=== PATIENT | male | born 1940 | race Caucasian/White ===

== ENCOUNTER 2017-12-01 10:25 | Outpatient (CLI) | payer MEDICARE, OTHER ==
--- NOTE | 2017-12-01 15:15 | NM ---
WHOLE BODY BONE SCAN: Date: 12/01/17 HISTORY: Prostate cancer. RADIOPHARMACEUTICAL: 32 mCi technetium-99m MDP injected intravenously. COMPARISON: Bone scan dated 05/26/17. CORRELATION: CT thoracic spine of 05/30/17. FINDINGS: There is continued intense tracer localization in the vertebral metastases involving the T4 and T5 ve rtebral bodies. There are small foci of mildly increased uptake noted in the left 5th, 9th, and 10th ribs, right iliac bone, and right calvarium. These are suspicious for new metastasis. Increased uptake in the shoulders and acromioclavicular joints are consistent with degenerative porras es. Postop changes of left arthroplasty are again seen. Tracer excretion through the kidneys is withi n normal limits. IMPRESSION: Findings suspicious for new osseous metastases since 05/26/17. POS: [facility]
== END 2017-12-01 10:26 | disposition home or self-care (01) ==
LOC: NM 10:25
PROVIDERS: ATTEND Internal Medicine Medical Oncology
DX: C61 Malignant neoplasm of prostate (principal); C79.51 Secondary malignant neoplasm of bone
CPT/HCPCS: 78306; A9503

== ENCOUNTER 2017-12-19 13:49 | Inpatient (IN) | payer MEDICARE, OTHER ==
[2017-12-19 14:50] LABS: ALT (SGPT) 17 U/L (8-55); AST (SGOT) 18 U/L (5-34); Albumin 3.1 g/dL (3.4-4.8); Alkaline Phosphatase 62 U/L (40-150); Anion Gap 15 mmol/L (10-20); BUN (Urea Nitrogen) 26 mg/dL (8.4-25.7); Bilirubin, Total 1.5 mg/dL (0.2-1.2); Calc. Creatinine Clearance 0 mL/min (70-130); Calcium 8.5 mg/dL (7.8-10.44); Carbon Dioxide 28 mmol/L (23-31); Chloride 95 mmol/L (98-107); Estimated GFR-MDRD 41; Globulin 2.8 g/dL (2.4-3.5); Glucose 267 mg/dL (83-110); Protein, Total 5.9 g/dL (5.8-8.1); Sodium 135 mmol/L (136-145)
[2017-12-19 14:52] LABS: CKMB 1.9 ng/mL (0-6.6); Troponin I 0.072 ng/mL (< 0.028)
[2017-12-19 14:53] LABS: Potassium 2.5 mmol/L (3.5-5.1)
--- NOTE | 2017-12-19 14:57 | RAD ---
PORTABLE CHEST: Date: 12/19/17 HISTORY: Fever. COMPARISON: 01/09/17. FINDINGS: Lungs appear well aerated and clear. No evidence of infiltrate. There are scattered granuloma again n oted. Dual lead pacemaker again noted. No evidence of vascular congestion or edema. IMPRESSION: No acute lung process noted on portable exam. POS: [facility]
[2017-12-19 15:04] LABS: Band 12 % (5-11); Eosinophils 4 % (0-10); Hemoglobin 10.1 g/dL (14.0-18.0); Lymphocytes 28 % (21-51); MDiff Complete? YES; Mean Corpuscular HGB CONC 36.2 g/dL (32.0-36.0); Mean Corpuscular Volume 96.7 fl (80.0-94.0); Mean Platelet Volume 7.4 fL (7.4-10.4); Metamyelocyte 4 % (0-0); Monocytes 2 % (0-10); Myelocyte 2 % (0-0); Neutrophil 46 % (42-75); Nucleated RBC 1 % (0); PLT Morphology Comment Appears Adequate; Platelet Count 136 thou/uL (130-400); RBC Distribution Width 10.9 % (11.5-14.5); RBC Morphology Normal; Reactive Lymphocytes 2 % (0-10); Reflex for Review?? NO; White Blood Cell (WBC) Count 1.1 thou/uL (4.8-10.8)
[2017-12-19] MEDS ORDERED: Potassium Chloride 20 MEQ TAB ONE (15:27)
--- NOTE | 2017-12-19 17:14 | HP ---
PRIMARY CARE PHYSICIAN: Cortez Chinchilla M.D. CHIEF COMPLAINT: Generalized weakness after chemotherapy. HISTORY OF PRESENTING ILLNESS: Mr. Burk is a very pleasant 77-year-old male with known history of m etastatic prostate cancer who was recently started on new chemotherapy last week who came into the em ergency room with primary complaints as above. History is mainly obtained by the patient himself and supplemented by his family members as he has some early onset of dementia. According to Mr. Burk's family, he has been feeling fine upon until 2 days after his chemotherapy. He progressively got extremely weak in the week following after the chemotherapy to the point where h e was not even able to get himself out up in the bed, let alone walk. He normally uses a walker and is fairly independent in taking care of himself, but lately he has been needing support to even get h im out of the bed. Two or three times, he slid out to the floor. He has also been feeling like he i s going to pass out. He has history of chronic diarrhea for which he takes Imodium, but in the last 2 days he has been having increased bowel movements which are loose and liquidy. He also has spiked temperature of day after chemotherapy which improved with Tylenol. He denies any chest pain, shortne ss of breath. He does endorse some chills yesterday. No abdominal pain, nausea, or vomiting. No dy suria, frequency or urgency. Upon presentation to the emergency room, he was hemodynamically stable, but further workup revealed n eutropenia with WBC of 1.1, hemoglobin of 10.1 and platelet count of 136. His neutrophil count is 46 %. Serum chemistry shows potassium of 2.5, BUN 26, creatinine 1.64. Cardiac enzymes, troponin 0.072 . His total bilirubin is 1.5, blood sugar 267. He was given IV fluids and IV potassium along with a ntibiotics and is now being admitted to oncology floor for further workup for possible neutropenic in fection. PAST MEDICAL HISTORY: 1. History of metastatic prostate cancer, currently under treatment status post radiation in the [facility]. 2. History of complete heart block status post pacemaker placement on 12/2016. 3. Hypertension. 4. Benign prostatic hypertrophy. 5. History of colon cancer. 6. Cognitive deficits, followed by Dr. Luis. 7. Depression. PAST SURGICAL HISTORY: Hip surgery, knee surgery, shoulder surgery, colon cancer and prostate surger y. ALLERGIES: No known medication allergies. SOCIAL HISTORY: He is and lives at home with his . No alcohol, tobacco or drug abuse. FAMILY HISTORY: Negative for heart disease and diabetes in his family. HOME MEDICATIONS: Metoprolol succinate 50 mg daily, escitalopram 10 mg daily, losartan/hydrochloroth iazide 100/12.5 mg daily, tamsulosin 0.4 mg 2 capsules daily, finasteride 5 mg daily, multivitamin [place], aspirin 81 mg daily, memantine 10 mg daily, galantamine daily 16 mg, [place] as needed, bicalutami de 50 mg daily, Zometa daily and Taxotere in the chemotherapy form. REVIEW OF SYSTEMS: The following complete review of systems was negative, unless otherwise mentioned in the HPI or below: Constitutional: Weight loss or gain, ability to conduct usual activities. Skin: Rash, itching. Eyes: Double vision, pain. ENT/Mouth: Nose bleeding, neck stiffness, pain, tenderness. Cardiovascular: Palpitations, dyspnea on exertion, orthopnea. Respiratory: Shortness of breath, wheezing, cough, hemoptysis, fever or night sweats. Gastrointestinal: Poor appetite, abdominal pain, heartburn, nausea, vomiting, constipation, or diarr hea. Genitourinary: Urgency, frequency, dysuria, nocturia. Musculoskeletal: Pain, swelling. Neurologic/Psychiatric: Anxiety, depression. Allergy/Immunologic: Skin rash, bleeding tendency. It is negative except for those mentioned in the history and physical. LABORATORY DATA: On examination, CBC shows WBCs 1.1 with 46%, neutrophils 12%, bands, hemoglobin 10. 1, platelet count of 136. Serum chemistries: Sodium 135, potassium 2.5, chloride 95, BUN 26, creati nine 1.64, blood sugar 265, total bilirubin 1.5. Troponin 0.072 with CK-MB of 1.9. IMAGING DATA: Chest x-ray by my review has no evidence to suggest any infiltrates. Twelve-lead EKG shows paced rhythm. PHYSICAL EXAMINATION: VITAL SIGNS: Stable. Blood pressure is somewhat on the lower side. Afebrile. GENERAL: He appears pale, weak and tired, but in no acute distress. He is awake, alert, oriented x3 . HEENT: Mucous membrane is slightly dry. No oropharyngeal exudate or erythema. Head is normocephali c, atraumatic. Pupils are equal and reactive to light and accommodation. Extraocular movement intac t. NECK: Supple without any lymphadenopathy, JVD or bruit. CHEST: Clear to auscultation without any wheezing, rales or rhonchi. Rhythm is regular without any murmur, rubs or gallops. ABDOMEN: Soft, nontender, and nondistended with positive bowel sounds. EXTREMITIES: Free of any cyanosis, clubbing, or edema. NEUROLOGIC: Examination is nonfocal. SKIN: Free of any rashes or bruises. PSYCHIATRIC: Normal affect. IMPRESSION AND PLAN: 1. Generalized weakness. Most likely secondary to cancer chemotherapy. He is also somewhat dehydra alton. At this time, he will be admitted under septic and neutropenic precautions and we will treat hi m with broad spectrum IV antibiotic and obtain urine and blood culture as well as urinalysis. Most l ikely, his symptoms are just secondary to chemotherapy, but sepsis cannot be ruled out at this time a s well. We will also consult occupational therapist and physical therapist and arrange home health f or this patient who is largely bed bound. 2. Acute renal insufficiency. This is secondary to ongoing diarrhea. He will be started on normal saline with potassium chloride. 3. Hypokalemia, replace and recheck. 4. Hyperglycemia, unclear why he has such hyperglycemia. He probably has received some steroids wit h his chemotherapy. At this time, we will continue to monitor. 5. Elevated cardiac enzymes. We will continue to trend serial cardiac enzymes. He currently is asy mptomatic and likelihood of ACS is very low. 6. Neutropenia without any significant reduction in the ANC. At this time, continue neutropenic pre cautions. We will continue to monitor on a daily basis and transfuse as needed. 7. Metastatic prostate cancer on chemotherapy. Consult his oncologist while he is here. He was due for his chemotherapy session today which he has obviously missed. We will defer the next chemothera py session to the Oncology colleagues at this time. 8. History of complete heart block, status post pacemaker placement. At this time, he does not have any complaints regarding to his pacemaker. Likelihood of pacemaker infection is very low. If he st arts to spike high fever and developed bacteremia, then pacemaker will need to be checked for lead in fection. 9. History of hypertension. We will resume his home medications once confirmed. 10. History of depression. 11. History of colon and bladder cancer. 12. Code status: FULL CODE. Discussed with the patient. DISPOSITION: Mr. Burk is currently being admitted to hospital with generalized weakness and possibl e neutropenic sepsis. Severe hypokalemia and dehydration also noticed. Estimated length of stay is at least 2-3 midnights. Further management will depend upon his clinical course.
[2017-12-19] MEDS ORDERED: Bisacodyl 5 MG TAB PO PRN (18:13)
[2017-12-19] MEDS ORDERED: cloNIDine 0.1 MG TAB PO PRN (18:13)
[2017-12-19] MEDS ORDERED: Ondansetron HCl/PF 4 MG/2 ML Vial IVP PRN ×2 (18:13)
[2017-12-19] MEDS ORDERED: Senokot 8.6 MG TAB PO PRN (18:13)
[2017-12-19] MEDS ORDERED: hydrALAZINE 20 MG/ML VIAL SLOW IVP PRN (18:13)
[2017-12-19] MEDS ORDERED: Mag-Al 1200 mg/1200 mg/30 ML UDCUP PO PRN (18:13)
[2017-12-19] MEDS ORDERED: Calcium Carbonate 500 MG ChewTAB PO PRN (18:13)
[2017-12-19 18:17] VITALS: BMI 29.2
[2017-12-19] MEDS: Vancomycin HCl 1 GM in Premix Bag 1 BAG IVPB SCH ×2 (20:18→21:16)
[2017-12-19] MEDS: Cefepime 2 GM, Syringe 2.5 ML in Sodium Chloride 0.9% 10 ML SLOW IVP SCH ×2 (20:18→21:16)
[2017-12-19] MEDS: 1/2 NS w/KCL 20 mEq 1,000 ML IV SCH ×2 (21:11→21:16)
[2017-12-19] MEDS: Famotidine 20 MG TAB PO SCH (21:17)
[2017-12-19] MEDS: Atorvastatin Calcium 10 MG TAB PO SCH (21:17)
[2017-12-19] MEDS ORDERED: Cefepime 2 GM in Sodium Chloride 0.9% 100 ML IVPB SCH (22:00)
[2017-12-20] MEDS: Cefepime 2 GM, Syringe 2.5 ML in Sodium Chloride 0.9% 10 ML SLOW IVP SCH ×3 (01:27→18:08)
[2017-12-20 05:50] LABS: Anion Gap 11 mmol/L (10-20); BUN (Urea Nitrogen) 27 mg/dL (8.4-25.7); Calc. Creatinine Clearance 48 mL/min (70-130); Calcium 7.7 mg/dL (7.8-10.44); Carbon Dioxide 27 mmol/L (23-31); Chloride 103 mmol/L (98-107); Estimated GFR-MDRD 46; Glucose 133 mg/dL (83-110); Sodium 138 mmol/L (136-145)
[2017-12-20 05:59] LABS: Potassium 2.5 mmol/L (3.5-5.1)
[2017-12-20 06:03] LABS: Band 11 % (5-11); Hemoglobin 8.5 g/dL (14.0-18.0); Lymphocytes 35 % (21-51); MDiff Complete? YES; Mean Corpuscular HGB CONC 36.1 g/dL (32.0-36.0); Mean Corpuscular Hemoglobin 35.1 pg (27.0-31.0); Mean Corpuscular Volume 97.3 fl (80.0-94.0); Mean Platelet Volume 7.3 fL (7.4-10.4); Monocytes 16 % (0-10); Neutrophil 38 % (42-75); Platelet Count 133 thou/uL (130-400); RBC Distribution Width 10.9 % (11.5-14.5); Red Blood Cell (RBC) Count 2.42 mill/uL (4.70-6.10); White Blood Cell (WBC) Count 1.3 thou/uL (4.8-10.8)
[2017-12-20] MEDS: Potassium Chloride 40 MEQ in Sodium Chloride 0.45% 1,000 ML IV SCH ×2 (07:26→20:43)
[2017-12-20] MEDS: Enoxaparin Sodium 40 MG/0.4 ML SYRINGE SC SCH (09:22)
[2017-12-20] MEDS: Bicalutamide 50 MG TAB PO SCH (09:23)
[2017-12-20] MEDS: Aspirin 81 mg Enteric Coated Tablet PO SCH (09:23)
[2017-12-20] MEDS: Finasteride 5 MG TAB PO SCH (09:23)
[2017-12-20] MEDS: Escitalopram Oxalate 10 mg Tablet PO SCH (09:23)
[2017-12-20] MEDS: Multivit, Therapeutic 1 TAB PO SCH (09:23)
[2017-12-20 09:50] LABS: Bilirubin Negative (Negative); Blood, Urine Large (Negative); Clarity CLOUDY (Clear); Glucose, Urine (Dipstick) Negative (Negative); Leukocyte Moderate (Negative); Nitrite Negative (Negative); Protein, Urine (Dipstick) 30 mg/dL (Neg-Trace); Specific Gravity, Urine 1.011 (1.002-1.036); Urobilinogen 0.2 mg/dL (0.2-1.0)
[2017-12-20 09:53] LABS: Bacteria/HPF None Seen HPF (None Seen); Hyaline Casts/LPF 4-6 HYALINE CAST LPF (0-3 Hyaline); Pathc Cast-AUWi Flag 0.81 (0-2.49); RBC/HPF 21-50 HPF (0-3); Squamous Epithelial 0-3 HPF (0-3)
[2017-12-20 10:23] LABS: Crystals/HPF 1+ AMORPH URATES HPF (Negative); Renal Epithelial None Seen HPF (0-3); Transitional Epithelial NONE SEEN HPF (0-3)
--- NOTE | 2017-12-20 13:48 | PQF ---
DATE: 12-20-17 ATTN: DR. MILO MCLAIN Please exercise your independent, professional judgment in responding to the clarification form. Clinical indicators are provided on the bottom of this form for your review Please check appropriate box(s): [ X ] Acute Renal Failure (ARF) / Acute Kidney Injury (GARRICK) [ ] No Renal Failure [ ] Other diagnosis [ ] Unable to determine In addition, please specify: Present on Admission (POA): [ ] Yes [ ] No [ ] Unable to determine National Kidney Foundation Guidelines for CKD Staging Stage I Kidney damage with normal or increased GFR GFR > 90 Stage II Kidney damage with mildly decreased GFR GFR 60-89 Stage III Kidney damage with moderately decreased GFR GFR 30-59 Stage IV Kidney damage with severely decreased GFR GFR 16-29 Stage V Kidney failure GFR<15 ESRD End Stage Renal Disease On dialysis Acute Renal Failure/Acute Kidney Failure defined as: Increases in SCr by (>) 0.3 mg/dl within 48 hours OR- Increases in SCr by (>) 1.5 times baseline, known or presumed to have occurred within the prior 7 days OR- Urine volume < 0.5 ml/kg/hour for 6 hours (KDIGO supplement 2012 for RIFLE/TORI criteria) For continuity of documentation, please document condition throughout progress notes and discharge summary. Thank You. CLINICAL INDICATORS - SIGNS / SYMPTOMS / LABS H&P: ACUTE RENAL INSUFFICIENCY. GFR: 12-19-18: 41 18: 46 BUN: 12-19-17: 26 18: 27 CREATININE: 18: 1.64 12-20-17: 1.47 H&P: ONGOING DIARRHEA RISK FACTORS: H&P: SOMEWHAT DEHYDRATED, ONGOING DIARRHEA TREATMENTS: H&P: HE WILL BE STARTED ON NORMAL SALINE WITH POTASSIUM CHLORIDE (This form is maintained as a part of the permanent medical record) 2014 [employer], [employer]. All Rights Reserved BETTY [email or web address] Office: [phone] [facility] CENTERZeke
--- NOTE | 2017-12-20 14:20 | PDOC.PN ---
- Subjective Encounter Start Date: 12/20/17 Encounter Start Time: 07:00 Pt seen for followup re: feneralized weakness. Denies chest pain. Feels weak overall. No nausea or vomiting. No fevers. - Objective MAR Reviewed: Yes Vital Signs & Weight: Vital Signs (12 hours) Temp Pulse Resp BP BP BP Pulse Ox 12/20/17 10:33 116/59 L 126/59 L 12/20/17 08:00 97.8 F 80 20 131/90 98 12/20/17 03:37 98.8 F 75 16 113/55 L 99 Weight Admit Weight 181 lb Weight 181 lb Result Diagrams: 12/20/17 05:15 12/20/17 05:15 Phys Exam - Physical Examination Constitutional: NAD HEENT: PERRLA, moist MMs, sclera anicteric, oral pharynx no lesions Neck: no nodes, no JVD, supple, full ROM Respiratory: no wheezing, no rales, no rhonchi, clear to auscultation bilateral Cardiovascular: RRR, no rub Gastrointestinal: soft, non-tender, no distention, positive bowel sounds Neurological: moves all 4 limbs Psychiatric: normal affect Dx/Plan (1) Generalized weakness Code(s): R53.1 - WEAKNESS Status: Acute (2) Hypokalemia Code(s): E87.6 - HYPOKALEMIA Status: Acute (3) GARRICK (acute kidney injury) Code(s): N17.9 - ACUTE KIDNEY FAILURE, UNSPECIFIED Status: Acute (4) Neutropenia Code(s): D70.9 - NEUTROPENIA, UNSPECIFIED Status: Acute (5) HTN (hypertension) Code(s): I10 - ESSENTIAL (PRIMARY) HYPERTENSION Status: Chronic (6) Depression Code(s): F32.9 - MAJOR DEPRESSIVE DISORDER, SINGLE EPISODE, UNSPECIFIED Status : Chronic (7) Metastatic malignant neoplasm to prostate Code(s): C79.82 - SECONDARY MALIGNANT NEOPLASM OF GENITAL ORGANS Status: Chronic - Plan continue antibiotics, PT/OT, out of bed/ambulate * . Continue IV antibiotics as below. Replace potassium. GARRICK improving. Monitor vital signs, titrate antihypertensives as needed. Review of Systems - Review of Systems Constitutional: weakness. negative: fever, chills, sweats, malaise Respiratory: negative: Cough, Dry, Shortness of Breath, Hemoptysis, SOB with Excertion, Pleuritic Pain, Sputum, Wheezing Cardiovascular: negative: chest pain, palpitations, orthopnea, paroxysmal nocturnal dyspnea, edema, light headedness Gastrointestinal: negative: Nausea, Vomiting, Abdominal Pain, Diarrhea, Constipation, Melena, Hematochezia Genitourinary: negative: Dysuria, Frequency, Incontinence, Hematuria, Retention - Medications/Allergies Allergies/Adverse Reactions: Allergies Allergy/AdvReac Type Severity Reaction Status Date / Time No Known Allergies Allergy Verified 12/20/17 03:31 Medications: Current Medications Acetaminophen (Tylenol) 650 mg PO Q4H PRN PRN Reason: Headache/Fever or Pain Al Hydroxide/Mg Hydroxide (Maalox) 30 ml PO Q6H PRN PRN Reason: Heartburn or Indigestion Aspirin (Ecotrin) 81 mg PO DAILY [facility] Last Admin: 12/20/17 09:23 Dose: 81 mg Atorvastatin Calcium (Lipitor) 10 mg PO HS [facility] Last Admin: 12/19/17 21:17 Dose: 10 mg Benzonatate (Tessalon) 100 mg PO Q4H PRN PRN Reason: Cough Bicalutamide (Casodex) 50 mg PO DAILY [facility] Last Admin: 12/20/17 09:23 Dose: 50 mg Bisacodyl (Dulcolax) 10 mg PO DAILYPRN PRN PRN Reason: Constipation Calcium Carbonate (Tums) 1,000 mg PO Q4H PRN PRN Reason: Heartburn or Indigestion Clonidine (Catapres) 0.1 mg PO Q4H PRN PRN Reason: Systolic BP > 160 Enoxaparin Sodium (Lovenox) 40 mg SC 0900 [facility] Last Admin: 12/20/17 09:22 Dose: 40 mg Escitalopram Oxalate (Lexapro) 10 mg PO DAILY [facility] Last Admin: 12/20/17 09:23 Dose: 10 mg Famotidine (Pepcid) 20 mg PO Q24HR [facility] Last Admin: 12/19/17 21:17 Dose: 20 mg Finasteride (Proscar) 5 mg PO DAILY [facility] Last Admin: 12/20/17 09:23 Dose: 5 mg Galantamine Hydrobromide (Razadyne) 16 mg PO DAILY [facility] Last Admin: 12/20/17 09:22 Dose: 16 mg Guaifenesin (Robitussin Sf) 200 mg PO Q4H PRN PRN Reason: Cough Hydralazine HCl (Apresoline) 10 mg SLOW IVP Q4H PRN PRN Reason: Systolic BP > 180 Vancomycin HCl 1 gm/ Device 200 mls @ 200 mls/hr IVPB 1830 [facility] Last Admin: 12/19/17 21:16 Dose: Not Given Cefepime HCl 2 gm/ Syringe 2.5 (ml/ Sodium Chloride) 12.5 mls @ 150 mls/hr SLOW IVP 0200,1000,1800 [facility] Last Admin: 12/20/17 09:26 Dose: 12.5 mls Potassium Chloride 40 meq/ (Sodium Chloride) 1,020 mls @ 75 mls/hr IV .[id number] [facility] Last Admin: 12/20/17 07:26 Dose: 1,020 mls Loratadine (Claritin) 10 mg PO DAILYPRN PRN PRN Reason: Sinus Symptoms Memantine (Namenda) 10 mg PO DAILY [facility] Last Admin: 12/20/17 09:23 Dose: 10 mg Miscellaneous Medication (Pharmacy To Dose) 1 each IVPB PRN PRN PRN Reason: Pharmacy to dose Multivitamins (Theragran) 1 tab PO DAILY [facility] Last Admin: 12/20/17 09:23 Dose: 1 tab Ondansetron HCl (Zofran) 4 mg IVP Q6H PRN PRN Reason: Nausea/Vomiting Senna (Senokot) 2 tab PO HSPRN PRN PRN Reason: Constipation Tramadol HCl (Ultram) 50 mg PO Q4H PRN PRN Reason: Moderate Pain (4-6)
--- NOTE | 2017-12-20 17:57 | CON ---
DATE OF CONSULTATION: 12/20/2017 REASON FOR CONSULTATION: Neutropenia. HISTORY OF PRESENT ILLNESS: Mr. Burk is a pleasant 77-year-old gentleman with metastatic prostate c ancer, who was recently on Zytiga and Lupron. Over the past 30 days, his PSA doubled. He had a bone scan, which showed a new bone metastasis. He was started on low dose weekly Zytiga. He received hi s first dose last week. Approximately, 3-4 days after treatment, he began to have generalized weakne ss, worsening diarrhea. He was to come in on yesterday for cycle 2; however, while loading him into the car, he became extremely weak and EMS was called and brought to this facility. Routine lab showe d a white count of 1.1 with 40% neutrophils and 12% bands. His potassium was 2.5. His creatinine wa s mildly elevated at 1.64. He was admitted for dehydration and generalized weakness. He was pancult ured and started on empiric antibiotics. Cultures have not been positive thus far. He has received potassium repletement. Currently, he states he is feeling well, no chest pain, shortness of breath. No abdominal discomfort or diarrhea. Assessment was done at bedside with family present. PAST MEDICAL HISTORY: 1. Josh 4+4, adenocarcinoma of the prostate. 2. Early Alzheimer's. 3. Hypertension. 4. Rectal cancer. PAST SURGICAL HISTORY: 1. Lower anterior resection of the rectum. 2. Hernia repair. 3. Hip replacement. 4. Laminectomy. 5. Shoulder replacement. ALLERGIES: No known drug allergies. HOME MEDICATIONS: 1. Aspirin 81 mg daily. 2. Bicalutamide 50 mg daily. 3. Citalopram 10 mg daily. 4. Finasteride 5 mg daily. 5. Galantamine 60 mg daily. 5. Hydrocodone p.r.n. 6. Losartan/hydrochlorothiazide daily. 7. Memantine daily. 8. Metoprolol 50 mg daily. 9. Flomax 0.4 mg 2 tablets daily. FAMILY HISTORY: Father had prostate cancer. SOCIAL HISTORY: , has 2 children, lives with his spouse. No alcohol, tobacco, or illicit cayla g use. REVIEW OF SYSTEMS: Twelve point review of systems is negative except for noted in HPI. PHYSICAL EXAMINATION: VITAL SIGNS: Temperature is 97.8, pulse is 80, respiratory rate 20, BP is 116/59. He is 98% on room air. GENERAL: Well-developed, well-nourished male in no acute distress. HEENT: Normocephalic, atraumatic. Pupils are equal and reactive to light. NECK: Supple. CARDIOVASCULAR: Regular rate and rhythm. LUNGS: Clear. ABDOMEN: Obese. Bowel sounds are positive. EXTREMITIES: No clubbing, cyanosis, or edema. SKIN: No rash. HEMATOLOGIC: No petechia or purpura. NEUROLOGIC: Nonfocal. PSYCHIATRIC: Patient is alert and oriented and answering questions appropriately. PERTINENT LABORATORY AND X-RAYS: Current WBCs are 1.3, hemoglobin 8.5, hematocrit 23.6, platelet cou nt is 133,000, 38% neutrophils, 11% bands, 35% lymphocytes, 16% monocytes. Sodium is 138, potassium 2.5, chloride 103, CO2 is 27, BUN is 27, creatinine 1.47, calcium 7.7, total bilirubin is 1.5, AST is 18, ALT is 17, alkaline phosphatase is 64. Troponin is 0.072, protein is 5.9, albumin 3.1, globulin 2.8. Urine is negative for bacteria. ASSESSMENT: 1. Metastatic prostate cancer status post cycle 1 of reduced dose Taxotere. 2. Weakness secondary to #1. 3. Chronic diarrhea. 4. Hypokalemia. DISCUSSION: Patient has been given IV fluids and potassium repletion. He has Imodium p.r.n. His wh ite count has marginally improved overnight. We will continue to monitor CBC. He will have a PT irma luation, which will likely continue at home. He will follow up next week to see Dr. Alyssa venegas further chemotherapy. Thank you for the consult.
[2017-12-20] MEDS: Vancomycin HCl 1 GM in Premix Bag 1 BAG IVPB SCH (18:08)
[2017-12-20] MEDS: Atorvastatin Calcium 10 MG TAB PO SCH (20:44)
[2017-12-20] MEDS: Famotidine 20 MG TAB PO SCH (20:44)
[2017-12-21] MEDS: Acetaminophen 325 MG TAB PO PRN (00:28)
[2017-12-21] MEDS: Benzonatate 100 MG CAP PO PRN (00:29)
[2017-12-21] MEDS: Cefepime 2 GM, Syringe 2.5 ML in Sodium Chloride 0.9% 10 ML SLOW IVP SCH ×3 (02:39→17:56)
[2017-12-21] MEDS: Diabetic Tussin 200 MG/10 ML UDCUP PO PRN (04:19)
[2017-12-21 09:05] LABS: Anion Gap 13 mmol/L (10-20); BUN (Urea Nitrogen) 21 mg/dL (8.4-25.7); Calc. Creatinine Clearance 54 mL/min (70-130); Carbon Dioxide 23 mmol/L (23-31); Chloride 107 mmol/L (98-107); Estimated GFR-MDRD 52; Glucose 118 mg/dL (83-110); Sodium 140 mmol/L (136-145)
[2017-12-21 09:09] LABS: Potassium 2.8 mmol/L (3.5-5.1)
[2017-12-21 09:12] LABS: #Eosinphils 0.1 thou/uL (0.0-0.7); #Lymphocytes 0.5 thou/uL (1.20-3.40); #Monocytes 0.2 thou/uL (0.11-0.59); #Neutrophils 0.9 thou/uL (1.40-6.50); %Basophils 0.4 % (0.0-1.0); %Eosinophils 4.1 % (0.0-10.0); %Lymphocytes 28.2 % (21.0-51.0); %Monocytes 13.1 % (0.0-10.0); %Neutrophils 54.2 % (42.0-75.0); Hemoglobin 9.1 g/dL (14.0-18.0); Mean Corpuscular HGB CONC 35.6 g/dL (32.0-36.0); Mean Corpuscular Hemoglobin 34.5 pg (27.0-31.0); Mean Platelet Volume 7.8 fL (7.4-10.4); Platelet Count 177 thou/uL (130-400); RBC Distribution Width 10.8 % (11.5-14.5); Red Blood Cell (RBC) Count 2.62 mill/uL (4.70-6.10); White Blood Cell (WBC) Count 1.6 thou/uL (4.8-10.8)
[2017-12-21] MEDS: Aspirin 81 mg Enteric Coated Tablet PO SCH (10:07)
[2017-12-21] MEDS: Enoxaparin Sodium 40 MG/0.4 ML SYRINGE SC SCH (10:07)
[2017-12-21] MEDS: Bicalutamide 50 MG TAB PO SCH (10:08)
[2017-12-21] MEDS: Finasteride 5 MG TAB PO SCH (10:09)
[2017-12-21] MEDS: Escitalopram Oxalate 10 mg Tablet PO SCH (10:09)
[2017-12-21] MEDS: Multivit, Therapeutic 1 TAB PO SCH (10:11)
[2017-12-21] MEDS: Potassium Chloride 20 MEQ TAB PO SCH ×2 (10:12→15:28)
[2017-12-21] MEDS: Potassium Chloride 40 MEQ in Sodium Chloride 0.45% 1,000 ML IV SCH ×2 (10:47→23:00)
--- NOTE | 2017-12-21 12:47 | PDOC.PN ---
- Subjective Encounter Start Date: 12/21/17 Encounter Start Time: 07:00 Pt seen for followup re: weakness. Sleepy but arousable, no complaints. - Objective MAR Reviewed: Yes Vital Signs & Weight: Vital Signs (12 hours) Temp Pulse Resp BP Pulse Ox 12/21/17 12:04 99 F 71 24 H 129/64 96 12/21/17 08:00 97.7 F 89 24 H 148/102 H 99 12/21/17 04:22 98.5 F Weight Admit Weight 181 lb Weight 181 lb I&O: 12/20/17 12/21/17 12/22/17 06:59 06:59 06:59 Intake Total 1000 Balance 1000 Result Diagrams: 12/21/17 08:27 12/21/17 08:27 Phys Exam - Physical Examination Constitutional: NAD HEENT: moist MMs Neck: supple Respiratory: clear to auscultation bilateral Cardiovascular: RRR Gastrointestinal: soft Neurological: moves all 4 limbs Psychiatric: normal affect Skin: no rash Dx/Plan (1) Generalized weakness Code(s): R53.1 - WEAKNESS Status: Acute Comment: Secondary to infection vs other causes. (2) Hypokalemia Code(s): E87.6 - HYPOKALEMIA Status: Acute Comment: Replace potassium (3) GARRICK (acute kidney injury) Code(s): N17.9 - ACUTE KIDNEY FAILURE, UNSPECIFIED Status: Acute Comment: Creatinine improving. (4) Neutropenia Code(s): D70.9 - NEUTROPENIA, UNSPECIFIED Status: Acute (5) HTN (hypertension) Code(s): I10 - ESSENTIAL (PRIMARY) HYPERTENSION Status: Chronic Comment: Monitor vital signs, titrate antihypertensives as needed. (6) Depression Code(s): F32.9 - MAJOR DEPRESSIVE DISORDER, SINGLE EPISODE, UNSPECIFIED Status : Chronic (7) Metastatic malignant neoplasm to prostate Code(s): C79.82 - SECONDARY MALIGNANT NEOPLASM OF GENITAL ORGANS Status: Chronic - Plan plan discussed w/ family, continue antibiotics, PT/OT, out of bed/ambulate * . Review of Systems - Review of Systems Constitutional: negative: fever, chills, sweats, weakness, malaise Respiratory: Cough, Dry. negative: Shortness of Breath, Hemoptysis, SOB with Excertion, Pleuritic Pain, Sputum, Wheezing Cardiovascular: negative: chest pain, palpitations, orthopnea, paroxysmal nocturnal dyspnea, edema, light headedness Gastrointestinal: negative: Nausea, Vomiting, Abdominal Pain, Diarrhea, Constipation, Melena, Hematochezia Genitourinary: negative: Dysuria, Frequency, Incontinence, Hematuria, Retention - Medications/Allergies Allergies/Adverse Reactions: Allergies Allergy/AdvReac Type Severity Reaction Status Date / Time No Known Allergies Allergy Verified 12/20/17 03:31 Medications: Current Medications Acetaminophen (Tylenol) 650 mg PO Q4H PRN PRN Reason: Headache/Fever or Pain Last Admin: 12/21/17 00:28 Dose: 650 mg Al Hydroxide/Mg Hydroxide (Maalox) 30 ml PO Q6H PRN PRN Reason: Heartburn or Indigestion Aspirin (Ecotrin) 81 mg PO DAILY [facility] Last Admin: 12/21/17 10:07 Dose: 81 mg Atorvastatin Calcium (Lipitor) 10 mg PO HS [facility] Last Admin: 12/20/17 20:44 Dose: 10 mg Benzonatate (Tessalon) 100 mg PO Q4H PRN PRN Reason: Cough Last Admin: 12/21/17 00:29 Dose: 100 mg Bicalutamide (Casodex) 50 mg PO DAILY [facility] Last Admin: 12/21/17 10:08 Dose: 50 mg Bisacodyl (Dulcolax) 10 mg PO DAILYPRN PRN PRN Reason: Constipation Calcium Carbonate (Tums) 1,000 mg PO Q4H PRN PRN Reason: Heartburn or Indigestion Clonidine (Catapres) 0.1 mg PO Q4H PRN PRN Reason: Systolic BP > 160 Enoxaparin Sodium (Lovenox) 40 mg SC 0900 [facility] Last Admin: 12/21/17 10:07 Dose: 40 mg Escitalopram Oxalate (Lexapro) 10 mg PO DAILY [facility] Last Admin: 12/21/17 10:09 Dose: 10 mg Famotidine (Pepcid) 20 mg PO Q24HR [facility] Last Admin: 12/20/17 20:44 Dose: 20 mg Finasteride (Proscar) 5 mg PO DAILY [facility] Last Admin: 12/21/17 10:09 Dose: 5 mg Galantamine Hydrobromide (Razadyne) 16 mg PO DAILY [facility] Last Admin: 12/21/17 10:09 Dose: 16 mg Guaifenesin (Robitussin Sf) 200 mg PO Q4H PRN PRN Reason: Cough Last Admin: 12/21/17 04:19 Dose: 200 mg Hydralazine HCl (Apresoline) 10 mg SLOW IVP Q4H PRN PRN Reason: Systolic BP > 180 Vancomycin HCl 1 gm/ Device 200 mls @ 200 mls/hr IVPB 1830 [facility] Last Admin: 12/20/17 18:08 Dose: 200 mls Cefepime HCl 2 gm/ Syringe 2.5 (ml/ Sodium Chloride) 12.5 mls @ 150 mls/hr SLOW IVP 0200,1000,1800 [facility] Last Admin: 12/21/17 10:07 Dose: 12.5 mls Potassium Chloride 40 meq/ (Sodium Chloride) 1,020 mls @ 75 mls/hr IV .[id number] [facility] Last Admin: 12/21/17 10:47 Dose: 1,020 mls Loratadine (Claritin) 10 mg PO DAILYPRN PRN PRN Reason: Sinus Symptoms Memantine (Namenda) 10 mg PO DAILY [facility] Last Admin: 12/21/17 10:11 Dose: 10 mg Miscellaneous Medication (Pharmacy To Dose) 1 each IVPB PRN PRN PRN Reason: Pharmacy to dose Multivitamins (Theragran) 1 tab PO DAILY [facility] Last Admin: 12/21/17 10:11 Dose: 1 tab Ondansetron HCl (Zofran) 4 mg IVP Q6H PRN PRN Reason: Nausea/Vomiting Potassium Chloride (K-Dur) 40 meq PO Q4H [facility] Stop: 12/21/17 14:01 Last Admin: 12/21/17 10:12 Dose: 40 meq Senna (Senokot) 2 tab PO HSPRN PRN PRN Reason: Constipation Sodium Chloride (Flush - Normal Saline) 10 ml IVF Q12HR [facility] Last Admin: 12/21/17 10:11 Dose: 10 ml Sodium Chloride (Flush - Normal Saline) 10 ml IVF PRN PRN PRN Reason: Saline Flush Tramadol HCl (Ultram) 50 mg PO Q4H PRN PRN Reason: Moderate Pain (4-6)
--- NOTE | 2017-12-21 13:16 | CT ---
CT BRAIN WITHOUT CONTTRAST: Comparison: 07-08-16 History: Left sided weakness for four weeks. New onset of garbled speech. Technique: Multiple contiguous axial images were obtained in a CT of the brain without contrast. FINDINGS: There are scattered hypodensities in the subcortical and periventricular white matter, likely seconda ry to small vessel ischemic disease. No large confluent infarctions seen. There is no evidence of hyd rocephalus, intracranial hemorrhage or extraaxial fluid collections. The calvarium and overlying soft tissues are unremarkable. The visualized paranasal sinuses and masto id air cells are well aerated. IMPRESSION: No evidence of acute intracranial abnormality. POS: OFF
[2017-12-21] MEDS: Vancomycin HCl 1 GM in Premix Bag 1 BAG IVPB SCH (18:01)
[2017-12-21] MEDS: Diphenoxylate HCl/Atropine Tablet PO PRN (18:15)
[2017-12-21 18:18] LABS: Vancomycin, Trough 13.7 ug/mL
[2017-12-21] MEDS: traMADol HCl 50 MG TAB PO PRN (20:57)
[2017-12-21] MEDS: Atorvastatin Calcium 10 MG TAB PO SCH (20:57)
[2017-12-21] MEDS: Famotidine 20 MG TAB PO SCH (20:59)
[2017-12-22] MEDS: Cefepime 2 GM, Syringe 2.5 ML in Sodium Chloride 0.9% 10 ML SLOW IVP SCH ×3 (02:23→18:09)
[2017-12-22] MEDS: Potassium Chloride 40 MEQ in Sodium Chloride 0.45% 1,000 ML IV SCH ×2 (02:34→18:09)
[2017-12-22 05:35] LABS: Anion Gap 10 mmol/L (10-20); BUN (Urea Nitrogen) 18 mg/dL (8.4-25.7); Calc. Creatinine Clearance 60 mL/min (70-130); Calcium 7.9 mg/dL (7.8-10.44); Carbon Dioxide 22 mmol/L (23-31); Chloride 111 mmol/L (98-107); Estimated GFR-MDRD 60; Glucose 101 mg/dL (83-110); Potassium 3.9 mmol/L (3.5-5.1); Sodium 139 mmol/L (136-145)
[2017-12-22 06:07] LABS: Band 5 % (5-11); Eosinophils 1 % (0-10); Hemoglobin 8.6 g/dL (14.0-18.0); Lymphocytes 28 % (21-51); MDiff Complete? YES; Mean Corpuscular HGB CONC 35.8 g/dL (32.0-36.0); Mean Corpuscular Hemoglobin 34.6 pg (27.0-31.0); Mean Corpuscular Volume 96.8 fl (80.0-94.0); Mean Platelet Volume 7.3 fL (7.4-10.4); Metamyelocyte 9 % (0-0); Monocytes 7 % (0-10); Neutrophil 47 % (42-75); Nucleated RBC 1 % (0); PLT Morphology Comment Appears Adequate; Platelet Count 189 thou/uL (130-400); RBC Distribution Width 10.9 % (11.5-14.5); Reactive Lymphocytes 3 % (0-10); Red Blood Cell (RBC) Count 2.48 mill/uL (4.70-6.10); White Blood Cell (WBC) Count 2.6 thou/uL (4.8-10.8)
[2017-12-22] MEDS: Enoxaparin Sodium 40 MG/0.4 ML SYRINGE SC SCH (10:29)
[2017-12-22] MEDS: Bicalutamide 50 MG TAB PO SCH (10:30)
[2017-12-22] MEDS: Finasteride 5 MG TAB PO SCH (10:31)
[2017-12-22] MEDS: Multivit, Therapeutic 1 TAB PO SCH (10:31)
[2017-12-22] MEDS: Escitalopram Oxalate 10 mg Tablet PO SCH (10:31)
[2017-12-22] MEDS: Aspirin 81 mg Enteric Coated Tablet PO SCH (10:31)
--- NOTE | 2017-12-22 13:32 | PDOC.PN ---
- Subjective Encounter Start Date: 12/22/17 Encounter Start Time: 07:00 Pt seen for followup re: weakness. Mumbling, not answering questions, unable to complete ROS. - Objective MAR Reviewed: Yes Vital Signs & Weight: Vital Signs (12 hours) Temp Pulse Resp BP Pulse Ox 12/22/17 07:25 99.7 F H 107 H 18 166/87 H 99 Weight Admit Weight 181 lb Weight 195 lb 2 oz I&O: 12/21/17 12/22/17 12/23/17 06:59 06:59 06:59 Intake Total 1000 1500 Balance 1000 1500 Result Diagrams: 12/22/17 04:52 12/22/17 04:52 Phys Exam - Physical Examination Constitutional: NAD HEENT: moist MMs Neck: supple Respiratory: clear to auscultation bilateral Cardiovascular: RRR Gastrointestinal: soft Neurological: moves all 4 limbs Psychiatric: normal affect Skin: no rash Dx/Plan (1) Generalized weakness Code(s): R53.1 - WEAKNESS Status: Acute Comment: Secondary to infection vs other causes. (2) HTN (hypertension) Code(s): I10 - ESSENTIAL (PRIMARY) HYPERTENSION Status: Chronic Comment: Monitor vital signs, titrate antihypertensives as needed. (3) Depression Code(s): F32.9 - MAJOR DEPRESSIVE DISORDER, SINGLE EPISODE, UNSPECIFIED Status : Chronic (4) Metastatic malignant neoplasm to prostate Code(s): C79.82 - SECONDARY MALIGNANT NEOPLASM OF GENITAL ORGANS Status: Chronic (5) Hypokalemia Code(s): E87.6 - HYPOKALEMIA Status: Resolved (6) Neutropenia Code(s): D70.9 - NEUTROPENIA, UNSPECIFIED Status: Resolved (7) GARRICK (acute kidney injury) Code(s): N17.9 - ACUTE KIDNEY FAILURE, UNSPECIFIED Status: Resolved - Plan plan discussed w/ family, continue antibiotics, out of bed/ambulate * . CT brain did not show any acute intracranial abnormalities. Continue antibiotics for now, pending final culture reports. Lomotil for diarrhea (chronic, C. diff -ve). Ambulate pt. Review of Systems - Medications/Allergies Allergies/Adverse Reactions: Allergies Allergy/AdvReac Type Severity Reaction Status Date / Time No Known Allergies Allergy Verified 12/20/17 03:31 Medications: Current Medications Acetaminophen (Tylenol) 650 mg PO Q4H PRN PRN Reason: Headache/Fever or Pain Last Admin: 12/21/17 00:28 Dose: 650 mg Al Hydroxide/Mg Hydroxide (Maalox) 30 ml PO Q6H PRN PRN Reason: Heartburn or Indigestion Aspirin (Ecotrin) 81 mg PO DAILY [facility] Last Admin: 12/22/17 10:31 Dose: 81 mg Atorvastatin Calcium (Lipitor) 10 mg PO HS [facility] Last Admin: 12/21/17 20:57 Dose: 10 mg Benzonatate (Tessalon) 100 mg PO Q4H PRN PRN Reason: Cough Last Admin: 12/21/17 00:29 Dose: 100 mg Bicalutamide (Casodex) 50 mg PO DAILY [facility] Last Admin: 12/22/17 10:30 Dose: 50 mg Bisacodyl (Dulcolax) 10 mg PO DAILYPRN PRN PRN Reason: Constipation Calcium Carbonate (Tums) 1,000 mg PO Q4H PRN PRN Reason: Heartburn or Indigestion Clonidine (Catapres) 0.1 mg PO Q4H PRN PRN Reason: Systolic BP > 160 Diphenoxylate HCl/Atropine (Lomotil) 1 tab PO Q6H PRN PRN Reason: Diarrhea/Loose Stools Last Admin: 12/21/17 18:15 Dose: 1 tab Enoxaparin Sodium (Lovenox) 40 mg SC 0900 [facility] Last Admin: 12/22/17 10:29 Dose: 40 mg Escitalopram Oxalate (Lexapro) 10 mg PO DAILY [facility] Last Admin: 12/22/17 10:31 Dose: 10 mg Famotidine (Pepcid) 20 mg PO Q24HR [facility] Last Admin: 12/21/17 20:59 Dose: 20 mg Finasteride (Proscar) 5 mg PO DAILY [facility] Last Admin: 12/22/17 10:31 Dose: 5 mg Galantamine Hydrobromide (Razadyne) 16 mg PO DAILY [facility] Last Admin: 12/22/17 10:30 Dose: 16 mg Guaifenesin (Robitussin Sf) 200 mg PO Q4H PRN PRN Reason: Cough Last Admin: 12/21/17 04:19 Dose: 200 mg Hydralazine HCl (Apresoline) 10 mg SLOW IVP Q4H PRN PRN Reason: Systolic BP > 180 Cefepime HCl 2 gm/ Syringe 2.5 (ml/ Sodium Chloride) 12.5 mls @ 150 mls/hr SLOW IVP 0200,1000,1800 [facility] Last Admin: 12/22/17 10:31 Dose: 12.5 mls Potassium Chloride 40 meq/ (Sodium Chloride) 1,020 mls @ 75 mls/hr IV .[id number] [facility] Last Admin: 12/22/17 02:34 Dose: 1,020 mls Vancomycin HCl 1.25 gm/ Sodium (Chloride) 250 mls @ 166.667 mls/hr IVPB 1800 [facility] Loratadine (Claritin) 10 mg PO DAILYPRN PRN PRN Reason: Sinus Symptoms Memantine (Namenda) 10 mg PO DAILY [facility] Last Admin: 12/22/17 10:31 Dose: 10 mg Miscellaneous Medication (Pharmacy To Dose) 1 each IVPB PRN PRN PRN Reason: Pharmacy to dose Multivitamins (Theragran) 1 tab PO DAILY [facility] Last Admin: 12/22/17 10:31 Dose: 1 tab Ondansetron HCl (Zofran) 4 mg IVP Q6H PRN PRN Reason: Nausea/Vomiting Senna (Senokot) 2 tab PO HSPRN PRN PRN Reason: Constipation Sodium Chloride (Flush - Normal Saline) 10 ml IVF Q12HR [facility] Last Admin: 12/22/17 10:34 Dose: 10 ml Sodium Chloride (Flush - Normal Saline) 10 ml IVF PRN PRN PRN Reason: Saline Flush Tramadol HCl (Ultram) 50 mg PO Q4H PRN PRN Reason: Moderate Pain (4-6) Last Admin: 12/21/17 20:57 Dose: 50 mg
[2017-12-22] MEDS: Vancomycin HCl 1.25 GM in Sodium Chloride 0.9% 250 ML 250 ML IVPB SCH (18:14)
[2017-12-22] MEDS: Atorvastatin Calcium 10 MG TAB PO SCH (19:50)
[2017-12-22] MEDS: Famotidine 20 MG TAB PO SCH (19:50)
[2017-12-22] MEDS ORDERED: traZODone HCl 50 MG TAB PO SCH (20:00)
[2017-12-22] MEDS: Diphenoxylate HCl/Atropine Tablet PO PRN (20:59)
[2017-12-22] MEDS: Benzonatate 100 MG CAP PO PRN (22:37)
[2017-12-23] MEDS: Cefepime 2 GM, Syringe 2.5 ML in Sodium Chloride 0.9% 10 ML SLOW IVP SCH ×2 (01:03→10:03)
[2017-12-23] MEDS: Loratadine 10 MG TAB PO PRN (02:02)
[2017-12-23] MEDS: Diabetic Tussin 200 MG/10 ML UDCUP PO PRN (02:03)
[2017-12-23] MEDS: Diphenoxylate HCl/Atropine Tablet PO PRN ×2 (05:30→21:37)
[2017-12-23 06:31] LABS: Anion Gap 11 mmol/L (10-20); BUN (Urea Nitrogen) 14 mg/dL (8.4-25.7); Calc. Creatinine Clearance 73 mL/min (70-130); Calcium 8.1 mg/dL (7.8-10.44); Carbon Dioxide 21 mmol/L (23-31); Chloride 112 mmol/L (98-107); Estimated GFR-MDRD 69; Glucose 109 mg/dL (83-110); Potassium 3.6 mmol/L (3.5-5.1); Sodium 140 mmol/L (136-145)
[2017-12-23 06:46] LABS: Band 5 % (5-11); Eosinophils 1 % (0-10); Hemoglobin 9.4 g/dL (14.0-18.0); Lymphocytes 32 % (21-51); MDiff Complete? YES; Mean Corpuscular HGB CONC 35.3 g/dL (32.0-36.0); Mean Corpuscular Volume 96.5 fl (80.0-94.0); Mean Platelet Volume 7.3 fL (7.4-10.4); Metamyelocyte 6 % (0-0); Monocytes 5 % (0-10); Myelocyte 6 % (0-0); Neutrophil 45 % (42-75); PLT Morphology Comment Appears Adequate; Platelet Count 215 thou/uL (130-400); RBC Distribution Width 11.3 % (11.5-14.5); Red Blood Cell (RBC) Count 2.76 mill/uL (4.70-6.10); White Blood Cell (WBC) Count 3.6 thou/uL (4.8-10.8)
[2017-12-23] MEDS: Potassium Chloride 40 MEQ in Sodium Chloride 0.45% 1,000 ML IV SCH (10:02)
[2017-12-23] MEDS: Enoxaparin Sodium 40 MG/0.4 ML SYRINGE SC SCH (10:03)
[2017-12-23] MEDS: Bicalutamide 50 MG TAB PO SCH (10:04)
[2017-12-23] MEDS: Multivit, Therapeutic 1 TAB PO SCH (10:05)
[2017-12-23] MEDS: Finasteride 5 MG TAB PO SCH (10:05)
[2017-12-23] MEDS: Aspirin 81 mg Enteric Coated Tablet PO SCH (10:06)
[2017-12-23] MEDS: Escitalopram Oxalate 10 mg Tablet PO SCH (10:06)
[2017-12-23 11:41] LABS: ALT (SGPT) 54 U/L (8-55); AST (SGOT) 53 U/L (5-34); Albumin 2.8 g/dL (3.4-4.8); Alkaline Phosphatase 60 U/L (40-150); Bilirubin, Direct 0.3 mg/dL (0.1-0.3); Bilirubin, Total 0.7 mg/dL (0.2-1.2); Protein, Total 5.4 g/dL (5.8-8.1)
--- NOTE | 2017-12-23 12:17 | PDOC.PN ---
- Subjective Encounter Start Date: 12/23/17 Encounter Start Time: 12:16 Pt seen for followup re: weakness. Family reports fluctuating LOC. He was able to speak to oncologist earlier but is now fast asleep, occasionally opening eyes but falling asleep. Could not complete ROS. - Objective MAR Reviewed: Yes Vital Signs & Weight: Vital Signs (12 hours) Temp Pulse Resp BP Pulse Ox 12/23/17 08:06 98 12/23/17 07:25 100.0 F H 100 24 H 119/76 98 Weight Admit Weight 181 lb Weight 199 lb 7 oz I&O: 12/22/17 12/23/17 12/24/17 06:59 06:59 07:59 Intake Total 1500 1507 Output Total 450 Balance 1500 1057 Result Diagrams: 12/23/17 05:28 12/23/17 05:28 Additional Labs: Accuchecks 12/23/17 10:21 POC Glucose 112 H Phys Exam - Physical Examination Obese HEENT: sclera anicteric Neck: supple Respiratory: clear to auscultation bilateral Cardiovascular: RRR Gastrointestinal: soft, non-tender Musculoskeletal: pulses present Neurological: moves all 4 limbs Skin: no rash Dx/Plan (1) Generalized weakness Code(s): R53.1 - WEAKNESS Status: Acute Comment: Unclear etiology (2) Acute encephalopathy Code(s): G93.40 - ENCEPHALOPATHY, UNSPECIFIED Status: Acute Comment: Pt spiked fever today. Discontinue cefepime, start meropenem. Check blood cultures. Pt also received trazodone last night, could be secondary to that as well. Maintaining good oxygen saturations. (3) HTN (hypertension) Code(s): I10 - ESSENTIAL (PRIMARY) HYPERTENSION Status: Chronic Comment: titrate antihypertensives as needed. (4) Depression Code(s): F32.9 - MAJOR DEPRESSIVE DISORDER, SINGLE EPISODE, UNSPECIFIED Status : Chronic (5) Metastatic malignant neoplasm to prostate Code(s): C79.82 - SECONDARY MALIGNANT NEOPLASM OF GENITAL ORGANS Status: Chronic (6) Hypokalemia Code(s): E87.6 - HYPOKALEMIA Status: Resolved (7) Neutropenia Code(s): D70.9 - NEUTROPENIA, UNSPECIFIED Status: Resolved (8) GARRICK (acute kidney injury) Code(s): N17.9 - ACUTE KIDNEY FAILURE, UNSPECIFIED Status: Resolved - Plan plan discussed w/ family, continue antibiotics * . Discussed with oncology service. Consult palliative care service. Review of Systems - Medications/Allergies Allergies/Adverse Reactions: Allergies Allergy/AdvReac Type Severity Reaction Status Date / Time No Known Allergies Allergy Verified 12/20/17 03:31 Medications: Current Medications Acetaminophen (Tylenol) 650 mg PO Q4H PRN PRN Reason: Headache/Fever or Pain Last Admin: 12/21/17 00:28 Dose: 650 mg Al Hydroxide/Mg Hydroxide (Maalox) 30 ml PO Q6H PRN PRN Reason: Heartburn or Indigestion Aspirin (Ecotrin) 81 mg PO DAILY [facility] Last Admin: 12/23/17 10:06 Dose: 81 mg Atorvastatin Calcium (Lipitor) 10 mg PO HS [facility] Last Admin: 12/22/17 19:50 Dose: 10 mg Benzonatate (Tessalon) 100 mg PO Q4H PRN PRN Reason: Cough Last Admin: 12/22/17 22:37 Dose: 100 mg Bicalutamide (Casodex) 50 mg PO DAILY [facility] Last Admin: 12/23/17 10:04 Dose: 50 mg Bisacodyl (Dulcolax) 10 mg PO DAILYPRN PRN PRN Reason: Constipation Calcium Carbonate (Tums) 1,000 mg PO Q4H PRN PRN Reason: Heartburn or Indigestion Clonidine (Catapres) 0.1 mg PO Q4H PRN PRN Reason: Systolic BP > 160 Diphenoxylate HCl/Atropine (Lomotil) 1 tab PO Q6H PRN PRN Reason: Diarrhea/Loose Stools Last Admin: 12/23/17 05:30 Dose: 1 tab Enoxaparin Sodium (Lovenox) 40 mg SC 0900 [facility] Last Admin: 12/23/17 10:03 Dose: 40 mg Escitalopram Oxalate (Lexapro) 10 mg PO DAILY [facility] Last Admin: 12/23/17 10:06 Dose: 10 mg Famotidine (Pepcid) 20 mg PO Q24HR [facility] Last Admin: 12/22/17 19:50 Dose: 20 mg Finasteride (Proscar) 5 mg PO DAILY [facility] Last Admin: 12/23/17 10:05 Dose: 5 mg Galantamine Hydrobromide (Razadyne) 16 mg PO DAILY [facility] Last Admin: 12/23/17 10:05 Dose: 16 mg Guaifenesin (Robitussin Sf) 200 mg PO Q4H PRN PRN Reason: Cough Last Admin: 12/23/17 02:03 Dose: 200 mg Hydralazine HCl (Apresoline) 10 mg SLOW IVP Q4H PRN PRN Reason: Systolic BP > 180 Potassium Chloride 40 meq/ (Sodium Chloride) 1,020 mls @ 75 mls/hr IV .[id number] [facility] Last Admin: 12/23/17 10:02 Dose: 1,020 mls Vancomycin HCl 1.25 gm/ Sodium (Chloride) 250 mls @ 166.667 mls/hr IVPB 1800 [facility] Last Admin: 12/22/17 18:14 Dose: 250 mls Meropenem 1 gm/ Sterile Water 20 mls @ 240 mls/hr SLOW IVP Q8HR [facility] Loratadine (Claritin) 10 mg PO DAILYPRN PRN PRN Reason: Sinus Symptoms Last Admin: 12/23/17 02:02 Dose: 10 mg Memantine (Namenda) 10 mg PO DAILY [facility] Last Admin: 12/23/17 10:05 Dose: 10 mg Miscellaneous Medication (Pharmacy To Dose) 1 each IVPB PRN PRN PRN Reason: Pharmacy to dose Multivitamins (Theragran) 1 tab PO DAILY [facility] Last Admin: 12/23/17 10:05 Dose: 1 tab Ondansetron HCl (Zofran) 4 mg IVP Q6H PRN PRN Reason: Nausea/Vomiting Senna (Senokot) 2 tab PO HSPRN PRN PRN Reason: Constipation Sodium Chloride (Flush - Normal Saline) 10 ml IVF Q12HR [facility] Last Admin: 12/23/17 10:06 Dose: 10 ml Sodium Chloride (Flush - Normal Saline) 10 ml IVF PRN PRN PRN Reason: Saline Flush Last Admin: 12/23/17 01:04 Dose: 10 ml Tramadol HCl (Ultram) 50 mg PO Q4H PRN PRN Reason: Moderate Pain (4-6) Last Admin: 12/21/17 20:57 Dose: 50 mg
[2017-12-23] MEDS ORDERED: Meropenem 1 GM in Sodium Chloride 0.9% 100 ML IVPB SCH (14:00)
[2017-12-23] MEDS ORDERED: Meropenem 1 GM in Sterile Water 20 ML SLOW IVP SCH (14:00)
--- NOTE | 2017-12-23 15:03 | EKG ---
Test Reason : Blood Pressure : / mmHG Vent. Rate : 073 BPM Atrial Rate : 073 BPM P-R Int : 134 ms QRS Dur : 174 ms QT Int : 534 ms P-R-T Axes : 068 -56 110 degrees QTc Int : 588 ms Electronic ventricular pacemaker Confirmed by LOTUS ROY ([id number]), city editor DERICK GHOTRA ([id number]) on 12/23/2017 3:02:40 PM Referred By: Confirmed By:LOTUS ROY
[2017-12-23] MEDS: Meropenem 1 GM in Sterile Water 20 ML SLOW IVP SCH (16:23)
[2017-12-23] MEDS: Vancomycin HCl 1.25 GM in Sodium Chloride 0.9% 250 ML 250 ML IVPB SCH (18:10)
[2017-12-23] MEDS: Atorvastatin Calcium 10 MG TAB PO SCH ×2 (20:10→21:37)
[2017-12-23] MEDS: Famotidine 20 MG TAB PO SCH ×2 (20:11→21:37)
[2017-12-24] MEDS: Meropenem 1 GM in Sterile Water 20 ML SLOW IVP SCH ×4 (00:04→20:50)
[2017-12-24] MEDS: Acetaminophen 325 MG TAB PO PRN (00:05)
[2017-12-24] MEDS: Potassium Chloride 40 MEQ in Sodium Chloride 0.45% 1,000 ML IV SCH ×2 (03:22→15:13)
[2017-12-24 05:34] LABS: Anion Gap 14 mmol/L (10-20); BUN (Urea Nitrogen) 12 mg/dL (8.4-25.7); Calc. Creatinine Clearance 85 mL/min (70-130); Calcium 8.3 mg/dL (7.8-10.44); Carbon Dioxide 19 mmol/L (23-31); Chloride 113 mmol/L (98-107); Estimated GFR-MDRD 80; Glucose 96 mg/dL (83-110); Potassium 3.6 mmol/L (3.5-5.1); Sodium 142 mmol/L (136-145)
[2017-12-24 05:50] LABS: Band 9 % (5-11); Hemoglobin 10.6 g/dL (14.0-18.0); Lymphocytes 12 % (21-51); MDiff Complete? YES; Macrocytosis SLIGHT = 6-15 cells (100X) (0-5/hpf); Mean Corpuscular HGB CONC 35.3 g/dL (32.0-36.0); Mean Corpuscular Hemoglobin 34.1 pg (27.0-31.0); Mean Corpuscular Volume 96.7 fl (80.0-94.0); Metamyelocyte 7 % (0-0); Monocytes 16 % (0-10); Myelocyte 4 % (0-0); Neutrophil 51 % (42-75); PLT Morphology Comment Appears Adequate; Platelet Count 225 thou/uL (130-400); Polychromasia SLIGHT = 2-3 cells (100X) (0-2/hpf); RBC Distribution Width 11.4 % (11.5-14.5); Reactive Lymphocytes 1 % (0-10); Red Blood Cell (RBC) Count 3.09 mill/uL (4.70-6.10); White Blood Cell (WBC) Count 5.6 thou/uL (4.8-10.8)
--- NOTE | 2017-12-24 08:25 | PDOC.PN ---
- Subjective Encounter Start Date: 12/24/17 Encounter Start Time: 08:24 Subjective: SLEEPING, D/W AT BEDSIDE, SHE REPORTS HIS MENTATION AT BASELINE - Objective MAR Reviewed: Yes Vital Signs & Weight: Vital Signs (12 hours) Temp Pulse Resp BP Pulse Ox 12/24/17 07:58 98 12/24/17 03:27 97.7 F 91 20 140/82 96 12/23/17 23:25 99.8 F H 94 20 157/92 H 97 12/23/17 21:35 95 135/74 12/23/17 20:00 98.2 F 73 20 178/81 H 96 Weight Admit Weight 181 lb Weight 199 lb 7 oz I&O: 12/23/17 12/24/17 12/25/17 05:59 06:59 06:59 Intake Total Output Total Balance Result Diagrams: 12/24/17 04:54 12/24/17 04:54 Additional Labs: Accuchecks 12/23/17 10:21 POC Glucose 112 H Phys Exam - Physical Examination Constitutional: NAD HEENT: moist MMs Neck: supple Respiratory: no rhonchi, clear to auscultation bilateral Cardiovascular: RRR Gastrointestinal: soft, non-tender Musculoskeletal: edema present Neurological: non-focal Skin: no rash Deviation from normal: BRUISES FROM IV SITE Dx/Plan (1) Acute encephalopathy Code(s): G93.40 - ENCEPHALOPATHY, UNSPECIFIED Status: Resolved Comment: Pt spiked fever today. Discontinue cefepime, start meropenem. Check blood cultures. Pt also received trazodone last night, could be secondary to that as well. Maintaining good oxygen saturations. (2) Generalized weakness Code(s): R53.1 - WEAKNESS Status: Chronic Comment: Unclear etiology (3) Depression Code(s): F32.9 - MAJOR DEPRESSIVE DISORDER, SINGLE EPISODE, UNSPECIFIED Status : Chronic (4) HTN (hypertension) Code(s): I10 - ESSENTIAL (PRIMARY) HYPERTENSION Status: Chronic Comment: titrate antihypertensives as needed. (5) Metastatic malignant neoplasm to prostate Code(s): C79.82 - SECONDARY MALIGNANT NEOPLASM OF GENITAL ORGANS Status: Chronic (6) GARRICK (acute kidney injury) Code(s): N17.9 - ACUTE KIDNEY FAILURE, UNSPECIFIED Status: Resolved (7) Hypokalemia Code(s): E87.6 - HYPOKALEMIA Status: Resolved (8) Neutropenia Code(s): D70.9 - NEUTROPENIA, UNSPECIFIED Status: Resolved - Plan cont current plan of care, plan discussed w/ family, continue antibiotics, PT/OT palliative care consult pending, Euvolemic, home per Oncology service * .
[2017-12-24] MEDS: Enoxaparin Sodium 40 MG/0.4 ML SYRINGE SC SCH (08:38)
[2017-12-24] MEDS: Aspirin 81 mg Enteric Coated Tablet PO SCH (11:05)
[2017-12-24] MEDS: Escitalopram Oxalate 10 mg Tablet PO SCH (11:06)
[2017-12-24] MEDS: Finasteride 5 MG TAB PO SCH (11:06)
[2017-12-24] MEDS: Multivit, Therapeutic 1 TAB PO SCH (11:06)
[2017-12-24] MEDS: Bicalutamide 50 MG TAB PO SCH (11:06)
[2017-12-24] MEDS: traMADol HCl 50 MG TAB PO PRN (14:57)
[2017-12-24] MEDS: Vancomycin HCl 1.25 GM in Sodium Chloride 0.9% 250 ML 250 ML IVPB SCH (18:09)
[2017-12-24 18:58] LABS: Vancomycin, Trough 20.1 ug/mL
[2017-12-24] MEDS: Famotidine 20 MG TAB PO SCH (20:49)
[2017-12-24] MEDS: Loratadine 10 MG TAB PO PRN (20:49)
[2017-12-25] MEDS: Diphenoxylate HCl/Atropine Tablet PO PRN ×2 (01:56→08:22)
[2017-12-25] MEDS: Meropenem 1 GM in Sterile Water 20 ML SLOW IVP SCH (05:04)
[2017-12-25 05:34] LABS: ALT (SGPT) 49 U/L (8-55); AST (SGOT) 49 U/L (5-34); Albumin 2.6 g/dL (3.4-4.8); Alkaline Phosphatase 61 U/L (40-150); Anion Gap 12 mmol/L (10-20); BUN (Urea Nitrogen) 13 mg/dL (8.4-25.7); Bilirubin, Total 0.6 mg/dL (0.2-1.2); Calc. Creatinine Clearance 75 mL/min (70-130); Calcium 7.7 mg/dL (7.8-10.44); Carbon Dioxide 20 mmol/L (23-31); Chloride 112 mmol/L (98-107); Estimated GFR-MDRD 76; Globulin 2.5 g/dL (2.4-3.5); Glucose 118 mg/dL (83-110); Potassium 3.8 mmol/L (3.5-5.1); Protein, Total 5.1 g/dL (5.8-8.1); Sodium 140 mmol/L (136-145)
[2017-12-25 05:47] LABS: Band 9 % (5-11); Hemoglobin 9.7 g/dL (14.0-18.0); Lymphocytes 13 % (21-51); MDiff Complete? YES; Mean Corpuscular HGB CONC 35.5 g/dL (32.0-36.0); Mean Corpuscular Hemoglobin 34.2 pg (27.0-31.0); Mean Corpuscular Volume 96.4 fl (80.0-94.0); Mean Platelet Volume 7.1 fL (7.4-10.4); Metamyelocyte 5 % (0-0); Monocytes 7 % (0-10); Myelocyte 3 % (0-0); Neutrophil 63 % (42-75); Nucleated RBC 2 % (0); PLT Morphology Comment Appears Adequate; Platelet Count 252 thou/uL (130-400); RBC Distribution Width 11.4 % (11.5-14.5); Red Blood Cell (RBC) Count 2.84 mill/uL (4.70-6.10); White Blood Cell (WBC) Count 7.1 thou/uL (4.8-10.8)
[2017-12-25 08:03] VITALS: BP 115/72; TEMP 98
[2017-12-25] MEDS: Potassium Chloride 40 MEQ in Sodium Chloride 0.45% 1,000 ML IV SCH (08:19)
[2017-12-25] MEDS: Finasteride 5 MG TAB PO SCH (08:21)
[2017-12-25] MEDS: Escitalopram Oxalate 10 mg Tablet PO SCH (08:21)
[2017-12-25] MEDS: Multivit, Therapeutic 1 TAB PO SCH (08:22)
[2017-12-25] MEDS: Aspirin 81 mg Enteric Coated Tablet PO SCH (08:22)
[2017-12-25] MEDS: Bicalutamide 50 MG TAB PO SCH (08:22)
[2017-12-25] MEDS: Enoxaparin Sodium 40 MG/0.4 ML SYRINGE SC SCH (08:22)
--- NOTE | 2017-12-25 14:35 | DIS ---
DATE OF ADMISSION: 12/19/2018 DATE OF DISCHARGE: 12/25/2017 PRIMARY DIAGNOSES: 1. Toxic metabolic encephalopathy. 2. Metastatic prostate carcinoma. HOSPITAL COURSE: The patient is a pleasant 77-year-old gentleman who was brought in on 12/19/2017 se condary to altered mental status and weakness. The patient had undergone his third round of chemothe rapy for his metastatic prostate cancer. His family had noticed that his functional status had kierra nued to deteriorate. The patient was altered mentally and brought in for assessment. The patient wa s noted to have several fever spikes with neutropenia upon admission. Cultures were sent of the bloo d, stool and urine. All cultures remained negative although he was empirically treated with antimicr obials. The patient continued to become more coherent during his hospital stay. Upon my exam, the p atient was alert and oriented x3. The Oncology Service instructed the family about the patient's pos sible prognosis. There was also a palliative care consult conducted. The family and all the [facility] services felt that the patient would do better at home, they are considering hospice and furt her disposition will be determined at a later date. PHYSICAL EXAMINATION ON DISCHARGE: GENERAL: The patient is in no acute distress. HEAD: Normocephalic, atraumatic. CARDIAC: Regular rate and rhythm. LUNGS: Clear to auscultation. ABDOMEN: Obese, nontender. EXTREMITIES: No clubbing or cyanosis. There is 1-2+ edema bilaterally. DISPOSITION: Home with home health. DISCHARGE DIET: Regular. DISCHARGE ACTIVITY: As tolerated. DISCHARGE MEDICATIONS: The patient is to resume his normal home regimen. FOLLOWUP: The patient is to follow up with his PCP within 2 weeks. He is also to follow up with his oncologist as previously scheduled.
[2017-12-25] MEDS ORDERED: Vancomycin HCl 1 GM in Premix Bag 1 BAG IVPB SCH (18:00)
== END 2017-12-25 13:50 | disposition home health service (06) | DRG 808 ==
LOC: ERS 13:49 → ONC 15:06 → OBSVTOIN 18:07
PROVIDERS: ADMIT Internal Medicine; ATTEND Internal Medicine
DX: D70.9 Neutropenia, unspecified (principal); G92 Toxic encephalopathy; I44.2 Atrioventricular block, complete; N17.9 Acute kidney failure, unspecified; C79.9 Secondary malignant neoplasm of unspecified site; E86.0 Dehydration; C61 Malignant neoplasm of prostate; E87.6 Hypokalemia; R50.81 Fever presenting with conditions classified elsewhere; F32.9 Major depressive disorder, single episode, unspecified; T45.1X5A Adverse effect of antineoplastic and immunosuppressive drugs, initial encounter; I10 Essential (primary) hypertension; N40.0 Benign prostatic hyperplasia without lower urinary tract symptoms; Z85.038 Personal history of other malignant neoplasm of large intestine; R73.9 Hyperglycemia, unspecified; Z95.0 Presence of cardiac pacemaker
CPT/HCPCS: 36415; 36416; 70450; 71045; 80048; 80053; 80076; 80202; 81003; 81015; 82553; 84484; 85025; 87040; 87045; 87046; 87086; 87324; 87449; 87899; 93005; 96360; A4216; G8978-GP-CL; G8979-GP-CK; G8987-GO-CL; G8988-GO-CJ; J0692; J1650; J2185; J2405; J3370; J3480; J7050

== ENCOUNTER 2018-07-09 10:48 | Outpatient (CLI) | payer MEDICARE, OTHER ==
[2018-07-09] MEDS ORDERED: Iopamidol 370 76% 50 ML VIAL FS ONE (12:22)
--- NOTE | 2018-07-09 15:12 | CT ---
CT OF THE CERVICAL SPINE WITHOUT CONTRAST: INDICATION: Concern for metastatic disease. COMPARISON: Whole body bone scan dated 11/21/17. FINDINGS: No definite suspicious osteolytic or osteoblastic lesion is evident involving the cervical spine. Th ere is moderate to severe multilevel spondylosis of the cervical spine without definite acute fractur e or subluxation. Craniocervical junction appears within normal limits. The visualized lung apices are clear. Mastoid air cells are clear. Visualized skull base appears wi thin normal limits. There are laminectomy changes at T2 through T4. IMPRESSION: 1. No suspicious osteolytic or osteoblastic lesion grossly identified. 2. Diffuse osteopenia. 3. Multilevel spondylosis of the cervical spine. 4. Laminectomy changes of the visualized T2 to T4 vertebral level. POS: BI
--- NOTE | 2018-07-09 15:24 | CT ---
CT OF BRAIN PERFORMED WITH AND WITHOUT CONTRAST ENHANCEMENT: HISTORY: Metastatic prostate cancer. Evaluation for brain metastases. COMPARISON: 12/21/17 and 07/30/15 exams. FINDINGS: There is generalized ventricular and sulcal prominence. There is decreased attenuation to the perive ntricular white matter. No intra- or extraaxial masses are identified. No areas of abnormal enhance ment. The mastoid air cells and visualized sinuses are clear. IMPRESSION: Atrophy. No evidence for metastatic disease. POS: REYESH
== END 2018-07-09 10:49 | disposition home or self-care (01) ==
LOC: CT 10:48
PROVIDERS: ATTEND Family Medicine
DX: C61 Malignant neoplasm of prostate (principal); G31.9 Degenerative disease of nervous system, unspecified; M85.88 Other specified disorders of bone density and structure, other site; M47.892 Other spondylosis, cervical region; Z98.890 Other specified postprocedural states
CPT/HCPCS: 70470; 72125

== ENCOUNTER 2018-09-30 11:27 | Inpatient (IN) | payer MEDICARE, OTHER ==
[2018-09-30 12:35] LABS: ALT (SGPT) 21 U/L (8-55); AST (SGOT) 23 U/L (5-34); Albumin 3.7 g/dL (3.4-4.8); Alkaline Phosphatase 382 U/L (40-150); Anion Gap 13 mmol/L (10-20); BUN (Urea Nitrogen) 32 mg/dL (8.4-25.7); Bilirubin, Total 1.4 mg/dL (0.2-1.2); Calc. Creatinine Clearance 0 mL/min (70-130); Calcium 8.6 mg/dL (7.8-10.44); Carbon Dioxide 26 mmol/L (23-31); Chloride 88 mmol/L (98-107); Estimated GFR-MDRD 56; Globulin 2.5 g/dL (2.4-3.5); Glucose 147 mg/dL (83-110); Potassium 4.1 mmol/L (3.5-5.1); Protein, Total 6.2 g/dL (5.8-8.1); Sodium 123 mmol/L (136-145)
[2018-09-30 13:16] LABS: #Eosinphils 0.1 thou/uL (0.0-0.7); #Lymphocytes 1.2 thou/uL (1.20-3.40); #Monocytes 0.9 thou/uL (0.11-0.59); #Neutrophils 13.5 thou/uL (1.40-6.50); %Basophils 0.2 % (0.0-1.0); %Eosinophils 0.4 % (0.0-10.0); %Lymphocytes 7.5 % (21.0-51.0); %Monocytes 5.8 % (0.0-10.0); %Neutrophils 86.1 % (42.0-75.0); Hemoglobin 14.3 g/dL (14.0-18.0); Mean Corpuscular HGB CONC 34.5 g/dL (32.0-36.0); Mean Corpuscular Hemoglobin 32.1 pg (27.0-31.0); Mean Corpuscular Volume 93.1 fL (78.0-98.0); Mean Platelet Volume 6.8 fL (7.4-10.4); Platelet Count 193 thou/uL (130-400); RBC Distribution Width 13.9 % (11.5-14.5); Red Blood Cell (RBC) Count 4.44 mill/uL (4.70-6.10); White Blood Cell (WBC) Count 15.6 thou/uL (4.8-10.8)
--- NOTE | 2018-09-30 13:51 | CT ---
CT OF THE CERVICAL SPINE WITHOUT CONTRAST: COMPARISON: 07/09/2018. HISTORY: Syncope in the shower with neck pain. TECHNIQUE: Multiple contiguous axial images were obtained in a CT of the cervical spine without contrast. Sagit gracie and coronal reformats were performed. FINDINGS: There are severe degenerative changes of the cervical spine. The vertebral bodies demonstrate normal height without acute fracture or subluxation. No prevertebral soft tissue swelling is seen. The posterior facets are well aligned. Normal alignment of the skull base with the cervical spine is seen. IMPRESSION: Degenerative changes of the cervical spine without acute osseous abnormality. POS: BI
--- NOTE | 2018-09-30 13:53 | CT ---
CT BRAIN NONCONTRAST: HISTORY: A 77-year-old male status post acute head trauma due to fall. FINDINGS: There is no midline shift or any other mass effect. There is no evidence of acute intracranial hemor rhage, large cortical infarct, obstructive hydrocephalus, or extraaxial fluid collection. The calvar ium is intact. There is diffuse parenchymal volume loss. There are low attenuation areas in the whi te matter. These are nonspecific, but in a patient of this age, they are probably chronic ischemic w isabel matter changes due to microvascular atherosclerosis. IMPRESSION: 1) No acute intracranial findings. 2) Involutional changes and chronic ischemic white matter changes. jn [] POS: BI
--- NOTE | 2018-09-30 14:08 | CT ---
CTA THORAX WITH CONTRAST: (Computed Tomographic Angiography, chest(noncoronary) with contrast material, and image postprocessin g) (PE protocol) DATE: 09/30/2018. TIME: 1:15 p.m. HISTORY: A 77-year-old male status post syncope. TECHNIQUE: IV injection of iodinated contrast: 70 mL of Isovue 370. Scan acquisition timing attempted to coincide with iodinated contrast bolus reaching maximal density in pulmonary arteries. 3D MIP reconstructions. FINDINGS: There is no pulmonary thromboembolism. No thoracic aortic aneurysm or dissection. A large number of sclerotic lesions throughout much of the bilateral ribs and thoracic spine. No consolidation or pul monary edema. No pleural effusion or pneumothorax. Patchy, ill-define moderately low-attenuation le sions in the left and right lobes of the liver. Laminectomy defects throughout the entire thoracic s pine. Heavy calcific densities throughout the LAD. No pericardial effusion. Laminectomies througho ut the entire thoracic spine. IMPRESSION: 1. No pulmonary thromboembolism or any other acute intrathoracic findings. 2. 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 3. Questionable hepatic metastases. Recommend dedicated multiphase CT abdomen with and without cont rast, liver mass protocol. 4. Status post laminectomies throughout the entire thoracic spine. shirley[] POS: BI
--- NOTE | 2018-09-30 18:42 | CON ---
DATE OF CONSULTATION: CONSULTING PHYSICIAN: Odilia Hinton MD REASON FOR CONSULTATION: Hyponatremia. IMPRESSION: Hyponatremia, query cause. Potential causes include, but not limited to the following medications. In this patient, in the context of use of hydrochlorothiazide and antidepressants, syndrome of inappropriate antidiuretic hormone secretion cannot be completely ruled out in the context of malignancy. PLAN: 1. We will get a urine chemistry to be able to categorize what type of hyponatremia this is and the potential etiologies, and treat accordingly. 2. For now, the patient should be on high-protein diet in the of increased meat. 3. Further management will be dependent on the clinical course and the results of the urine chemistry. HISTORY OF PRESENT ILLNESS: History is that of 77-year-old gentleman with metastatic prostatic carcinoma, who presented here status post syncope and noted with sodium level of 123. The patient also has history of hypertension, on losartan/hydrochlorothiazide combo. Recently, Lexapro dose was increased and the patient does have history of depression. PAST MEDICAL HISTORY: As documented in the body of the history. In addition, the patient does have a history of colon cancer and cognitive deficits. ALLERGIES: NO KNOWN DRUG ALLERGIES. SOCIAL HISTORY: , living with . No alcohol. No tobacco. No illicit drug use. FAMILY HISTORY: Not significantly related to the present illness. MEDICATIONS: Reviewed and as documented on [employer]. REVIEW OF SYSTEMS: As documented in the body of history. All the other systems were reviewed and found not to be significantly related to present illness. LABORATORY INVESTIGATION: Significant for sodium of 123 and white blood cell of 15,600. PHYSICAL EXAMINATION: GENERAL: On examination, the patient was found not to be in any obvious distress. VITAL SIGNS: Hemodynamically stable with a blood pressure 104/62, respiratory rate of 18, and O2 saturations of 96%. HEENT: Unremarkable. CARDIOVASCULAR SYSTEM: First and second heart sounds were heard. RESPIRATORY SYSTEM: Clear to auscultation. DIGESTIVE SYSTEM: Revealed a benign abdomen. EXTREMITIES: No peripheral edema. SKIN: No new gross rash. LYMPHATICS: No peripheral lymphadenopathy. ASSESSMENT AND PLAN: In summary, a 77-year-old gentleman with metastatic prostatic carcinoma, who presented here status post syncope and noted with hyponatremia with sodium of 123. Thank you for this consultation. We will follow with you. Job ID: [id number]
[2018-09-30] MEDS ORDERED: HYDROcodone/Acetaminophen 10/325 mg Tablet PO PRN (19:27)
[2018-09-30] MEDS ORDERED: Guaifenesin DM 100-10/5 ML UDCUP PO PRN (19:27)
[2018-09-30] MEDS ORDERED: HYDROcodone/Acetaminophen 5/325 mg Tablet PO PRN (19:27)
[2018-09-30] MEDS ORDERED: Acetaminophen 325 MG TAB PO PRN (19:27)
[2018-09-30] MEDS ORDERED: Sodium Chloride 0.9% 1,000 ML IV SCH (19:30)
[2018-09-30] MEDS ORDERED: Morphine 2 MG/ML SYRINGE SLOW IVP PRN (19:31)
[2018-09-30 20:17] LABS: Bilirubin Negative (Negative); Blood, Urine Large (Negative); Clarity CLEAR (Clear); Glucose, Urine (Dipstick) Negative (Negative); Leukocyte Negative (Negative); Nitrite Negative (Negative); Protein, Urine (Dipstick) Negative (Neg-Trace); Specific Gravity, Urine 1.034 (1.002-1.036)
--- NOTE | 2018-09-30 20:17 | HP ---
REASON FOR ADMISSION: Hyponatremia, acute kidney injury, [id number] dehydration, and syncope. HISTORY OF PRESENTING ILLNESS: The patient apparently passed out in the shower this morning. He has also developed tremor in his hands for last 2 days. 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 He is currently under palliative care with hospice at [facility]. He has had a poor appetite and is also drinking less of fluids. He was prescribed fentanyl patch and dexamethasone from 12 of September. He walks a few steps with a walker, but off late, he has been wheelchair bound. No complaints of urinary frequency or urgency, although he has history of prostate cancer. There are no complaints of cough or expectoration. No history of fever. No chest pain or palpitation. PAST MEDICAL HISTORY: 1. 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 2. Cognitive dysfunction. 3. Hypertension. 4. History of rectal cancer with prior low anterior resection of rectum. 5. Hernia repair. 6. Hip replacement. 7. Laminectomy. 8. Shoulder replacement. 9. Pacemaker placed in December of 2016. 10. Depression. CURRENT MEDICATION: Takes Lopressor 50 mg extended release daily, escitalopram 20 mg daily, losartan with hydrochlorothiazide 100/12.5 mg 1-1/2 tablets daily, tamsulosin 0.4 mg two tabs daily, finasteride 5 mg daily, multivitamin one tablet once daily, aspirin 81 mg daily, dexamethasone 1 mg daily, fentanyl 25 mcg transdermal patch q.72 hourly, and [place] 10/325 mg q.6 hourly p.r.n. ALLERGIES: NO KNOWN DRUG ALLERGIES. PERSONAL HISTORY: Does not abuse alcohol or drugs. No history of smoking. FAMILY HISTORY: Both parents in their 80s. Mother had history of coronary artery disease. Father had dementia. CODE STATUS: Full. Power of attorney lawyer is his . The patient is currently in palliative care under hospice, [facility] for terminal prostate cancer. REVIEW OF SYSTEMS: CONSTITUTIONAL: Negative for weight loss or gain, ability to conduct usual activities. SKIN: Negative for rash, itching. EYES: Negative for double vision, pain. ENT/MOUTH: Negative for nose bleeding, neck stiffness, pain, tenderness. CARDIOVASCULAR: Negative for palpitations, dyspnea on exertion, orthopnea. RESPIRATORY: Negative for shortness of breath, wheezing, cough, hemoptysis, fever, or night sweats. GASTROINTESTINAL: Negative for poor appetite, abdominal pain, heartburn, nausea , vomiting, constipation, or diarrhea. GENITOURINARY: Negative for urgency, frequency, dysuria, nocturia. MUSCULOSKELETAL: Negative for pain, swelling. NEUROLOGIC/PSYCHIATRIC: Negative for anxiety, depression. ALLERGY/IMMUNOLOGIC: Negative for skin rash, bleeding tendency. PHYSICAL EXAMINATION: GENERAL: The patient is a 77-year-old male who is currently not in any acute distress. VITAL SIGNS: Blood pressure 86/54, pulse 70 per minute, respiratory rate 18 per minute, temperature 98.8 degrees Fahrenheit, and saturating 100% on room air. NECK: Supple. No elevated JVD. EYES: Extraocular muscles intact. Pupils reacting to light. The patient has edema of his both eyelids. Oral cavity, mucous membranes are dry. No exudates or congestion. CARDIOVASCULAR SYSTEM: S1, S2 heard. Regular rhythm. RESPIRATORY SYSTEM: Air entry 1+ bilateral. No rales or rhonchi. ABDOMEN: Soft. Bowel sounds heard. No tenderness, rigidity, or guarding. EXTREMITIES: Mild peripheral edema. No calf tenderness. VASCULAR SYSTEM: Peripheral pulses 1+ bilateral. No ischemic ulcerations or gangrene. CENTRAL NERVOUS SYSTEM: No gross focal deficits noted. The patient has involuntary tremors off and on, which do not happen on a regular frequency. PSYCHIATRIC SYSTEM: The patient is a bit lethargic, but responds well to verbal questions. He is not fully oriented. LABORATORY DATA: White count of 15, H and H of 14 and 41, platelet count 193 with 86% neutrophils, and MCV is 93. Sodium 123, chloride 88, serum bicarb 26, potassium 4.1, BUN 32, creatinine 1.2, serum glucose 147, and alk phos 382. Troponin I less than 0.01. Albumin is 3.7. CT cervical spine without contrast done shows degenerative changes without acute osseous abnormality. CT angio chest done shows no evidence of PE. 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 He has had prior laminectomy done in the thoracic spine. CT brain shows no acute intracranial abnormality. There are chronic ischemic white matter changes seen. EKG done shows a paced rhythm at 78 beats per minute. There are frequent PVCs. QRS duration is 174 milliseconds. CLINICAL IMPRESSION AND PLAN: The patient will be admitted to telemetry for acute hyponatremia, dehydration, and acute kidney injury. He also has a white count of 15, likely margination, but in view of his malignancy and 86% neutrophils with possible immunosuppression, we will place him on antibiotics after verdin-cultures are obtained. He will be gently hydrated with normal saline at 80 mL/hour. Urine serum osmolalities, urine electrolytes, TSH, serum cortisol stat, TSH stat, uric acid levels will all be obtained. I have spoken with Dr. Hartley, who will be closely monitoring his sodium levels. The patient's overall prognosis is poor as he has terminal prostate cancer with multiple mets. He will be on morphine p.r.n. for pain. I have discussed code status with the patient and family members. They are currently going with what the patient wants and that is full code, although he is not fully oriented. He is under palliative care at present. If the patient were to clinically deteriorate, this will be further addressed/revisited. We will place him empirically on Levaquin for now. We will continue his aspirin, citalopram, finasteride, metoprolol, multivitamin, and Flomax as before. The patient has a history of severe depression and his escitalopram was increased to 20 mg by his palliative care physician, Dr. Cox, and in view of his poor prognosis, would not want to stop this, although he has hyponatremia. Job ID: [id number] MTDD
[2018-09-30 20:19] LABS: Hyaline Casts/LPF 4-6 HYALINE CAST LPF (0-3 Hyaline); RBC/HPF GREATER THAN 50-TNTC HPF (0-3); Squamous Epithelial 0-3 HPF (0-3); WBC/HPF 0-3 HPF (0-3)
[2018-09-30 20:27] LABS: Bacteria/HPF None Seen HPF (None Seen)
[2018-09-30] MEDS ORDERED: Ondansetron ODT 4 MG TAB SL PRN (21:13)
[2018-09-30] MEDS ORDERED: Ondansetron PF 4 MG/2 ML Vial IVP PRN (21:13)
[2018-09-30 21:39] VITALS: BMI 22.7
[2018-09-30 21:45] LABS: Thyroid Stimulating Hormone 0.3831 uIU/mL (0.35-4.94)
[2018-09-30] MEDS: Famotidine 20 MG TAB PO SCH (21:45)
[2018-09-30] MEDS: Senokot S 8.6-50 MG TAB PO SCH (21:45)
[2018-09-30 23:09] LABS: Potassium, Urine 30.3 mmol/L
[2018-10-01 05:48] LABS: #Eosinphils 0.1 thou/uL (0.0-0.7); #Lymphocytes 1.9 thou/uL (1.20-3.40); #Monocytes 0.6 thou/uL (0.11-0.59); #Neutrophils 6.9 thou/uL (1.40-6.50); %Basophils 0.1 % (0.0-1.0); %Eosinophils 0.6 % (0.0-10.0); %Lymphocytes 19.7 % (21.0-51.0); %Monocytes 6.7 % (0.0-10.0); %Neutrophils 72.9 % (42.0-75.0); Hemoglobin 11.8 g/dL (14.0-18.0); Mean Corpuscular HGB CONC 34.9 g/dL (32.0-36.0); Mean Corpuscular Hemoglobin 32.4 pg (27.0-31.0); Mean Corpuscular Volume 92.8 fL (78.0-98.0); Mean Platelet Volume 6.7 fL (7.4-10.4); Platelet Count 163 thou/uL (130-400); RBC Distribution Width 13.8 % (11.5-14.5); Red Blood Cell (RBC) Count 3.64 mill/uL (4.70-6.10); White Blood Cell (WBC) Count 9.4 thou/uL (4.8-10.8)
[2018-10-01 06:13] LABS: Anion Gap 12 mmol/L (10-20); BUN (Urea Nitrogen) 30 mg/dL (8.4-25.7); Calc. Creatinine Clearance 52 mL/min (70-130); Carbon Dioxide 22 mmol/L (23-31); Chloride 94 mmol/L (98-107); Estimated GFR-MDRD 63; Glucose 98 mg/dL (83-110); Potassium 3.9 mmol/L (3.5-5.1); Sodium 124 mmol/L (136-145)
[2018-10-01] MEDS: Aspirin 81 mg Enteric Coated Tablet PO SCH (08:04)
[2018-10-01] MEDS: Enoxaparin Sodium 40 MG/0.4 ML SYRINGE SC SCH (08:05)
[2018-10-01] MEDS: Finasteride 5 MG TAB PO SCH (08:05)
[2018-10-01] MEDS: Escitalopram Oxalate 20 mg Tablet PO SCH (08:05)
[2018-10-01] MEDS: Senokot S 8.6-50 MG TAB PO SCH ×2 (08:05→20:01)
[2018-10-01] MEDS: Multivit, Therapeutic 1 TAB PO SCH (08:05)
[2018-10-01] MEDS: Tamsulosin HCl 0.4 MG CAP PO SCH (08:06)
[2018-10-01] MEDS ORDERED: Conivaptan 20 MG in Premix Bag 1 BAG IVPB SCH (08:15)
[2018-10-01 12:32] LABS: Sodium 124 mmol/L (136-145)
--- NOTE | 2018-10-01 13:09 | PDOC.PN ---
- Subjective Encounter Start Date: 10/01/18 Encounter Start Time: 12:00 Subjective: awake, not in distress -: had his breakfast, at bedside - Objective Resuscitation Status - Order Detail: 09/30/18 19:22 Resuscitation Status Routine Resuscitation Status: FULL: Full Resuscitation MAR Reviewed: Yes Vital Signs & Weight: Vital Signs (12 hours) Temp Pulse Pulse Pulse Resp BP BP 10/01/18 11:14 97.7 F 99 10/01/18 10:00 91 94 104/63 123/79 10/01/18 08:40 10/01/18 07:19 97.8 F 10/01/18 04:00 97.7 F 86 20 BP BP Pulse Ox Pulse Ox Pulse Ox 10/01/18 11:14 102/55 L 97 10/01/18 10:00 98 98 10/01/18 08:40 99 10/01/18 07:19 109/68 99 10/01/18 04:00 142/73 H 99 Weight Weight 149 lb 9.6 oz I&O: 09/30/18 10/01/18 10/02/18 06:59 06:59 06:59 Intake Total 730 Balance 730 Result Diagrams: 10/01/18 04:39 10/01/18 12:15 Phys Exam - Physical Examination HEENT: PERRLA, sclera anicteric Neck: no JVD, supple Respiratory: no wheezing, no rales Cardiovascular: RRR, no significant murmur Gastrointestinal: soft, non-tender, positive bowel sounds Musculoskeletal: no edema, pulses present Neurological: non-focal, moves all 4 limbs Dx/Plan (1) Hyponatremia Code(s): E87.1 - HYPO-OSMOLALITY AND HYPONATREMIA Status: Acute (2) Dehydration, moderate Code(s): E86.0 - DEHYDRATION Status: Acute (3) Generalized weakness Code(s): R53.1 - WEAKNESS Status: Chronic (4) HTN (hypertension) Code(s): I10 - ESSENTIAL (PRIMARY) HYPERTENSION Status: Chronic Qualifiers: Hypertension type: essential hypertension Qualified Code(s): I10 - Essential (primary) hypertension (5) Metastatic malignant neoplasm to prostate Code(s): C79.82 - SECONDARY MALIGNANT NEOPLASM OF GENITAL ORGANS Status: Chronic (6) GARRICK (acute kidney injury) Code(s): N17.9 - ACUTE KIDNEY FAILURE, UNSPECIFIED Status: Acute (7) Acute encephalopathy Code(s): G93.40 - ENCEPHALOPATHY, UNSPECIFIED Status: Acute - Plan got casey this am -: d/w about code status, she will talk to her son and family and will ge -: -t back to us, is aware of poor prognosis -: wbc is down to 9k, will dc levaquin, margination due to dehydration -: garrick is better, sod at 124 * . continue asp, proscar, flomax, toprol xl, and lexapro May tx to medical floor. Review of Systems - Medications/Allergies Allergies/Adverse Reactions: Allergies Allergy/AdvReac Type Severity Reaction Status Date / Time No Known Allergies Allergy Verified 12/20/17 03:31 Medications: Current Medications Acetaminophen (Tylenol) 650 mg PO Q4H PRN PRN Reason: Headache/Fever/Mild Pain (1-3) Hydrocodone Bitart/Acetaminophen ([place] 5/325) 1 tab PO Q4H PRN PRN Reason: Moderate Pain (4-6) Aspirin (Ecotrin) 81 mg PO DAILY [facility] Last Admin: 10/01/18 08:04 Dose: 81 mg Dexamethasone (Decadron) 4 mg PO DAILY [facility] Enoxaparin Sodium (Lovenox) 40 mg SC 0900 [facility] Last Admin: 10/01/18 08:05 Dose: 40 mg Escitalopram Oxalate (Lexapro) 20 mg PO DAILY [facility] Last Admin: 10/01/18 08:05 Dose: 20 mg Famotidine (Pepcid) 20 mg PO Q24HR [facility] Last Admin: 09/30/18 21:45 Dose: 20 mg Finasteride (Proscar) 5 mg PO DAILY [facility] Last Admin: 10/01/18 08:05 Dose: 5 mg Guaifenesin/Dextromethorphan (Robitussin Dm) 15 ml PO Q4H PRN PRN Reason: Cough Hydrocortisone Sodium Succinate (Solu-Cortef) 50 mg IVP ONE STA Stop: 10/01/18 13:07 Levofloxacin 500 mg/ Device 100 mls @ 100 mls/hr IVPB 1999 [facility] Last Admin: 09/30/18 21:31 Dose: 100 mls Metoprolol Succinate (Toprol Xl) 50 mg PO DAILY [facility] Last Admin: 10/01/18 08:05 Dose: 50 mg Morphine Sulfate (Morphine) 2 mg SLOW IVP Q4H PRN PRN Reason: Chest Pain/BP Elevations Multivitamins (Theragran) 1 tab PO DAILY [facility] Last Admin: 10/01/18 08:05 Dose: 1 tab Senna/Docusate Sodium (Senokot S) 2 tab PO BID [facility] Last Admin: 10/01/18 08:05 Dose: 2 tab Sodium Chloride (Flush - Normal Saline) 10 ml IVF Q12HR [facility] Last Admin: 10/01/18 08:49 Dose: 10 ml Sodium Chloride (Flush - Normal Saline) 10 ml IVF PRN PRN PRN Reason: Saline Flush Tamsulosin HCl (Flomax) 0.8 mg PO DAILY [facility] Last Admin: 10/01/18 08:06 Dose: 0.8 mg
[2018-10-01] MEDS ORDERED: Hydrocortisone Sod Succ/PF 100 mg/2 ml Vial IVP SCH (13:15)
[2018-10-01 18:19] LABS: Sodium 125 mmol/L (136-145)
--- NOTE | 2018-10-01 19:24 | PRG ---
DATE OF SERVICE: 10/01/2018 SUBJECTIVE: The patient is seen and examined. Seems to be much more alert. Noted with the following vital signs. OBJECTIVE: VITAL SIGNS: Afebrile, temperature 97.7, pulse 99, respiratory rate of 20, and blood pressure 104/63. HEENT EXAMINATION: Unremarkable. CARDIOVASCULAR SYSTEM: First and second heart sounds were heard. RESPIRATORY SYSTEM: Clear to auscultation. DIGESTIVE SYSTEM: Revealed a benign abdomen with positive bowel sounds. EXTREMITIES: No significant peripheral edema. SKIN: No new gross rash. LYMPHATICS: No peripheral lymphadenopathy. LABORATORY DATA: Laboratory investigation significant for sodium that remained at 124, start with p.m. sodium level check. PLAN: 1. The patient already on Vaprisol. This medication was ordered as bolus, but I noted that it is being given as drip, therefore, we will check the corrected sodium level. If it is too low, we will go ahead and give this medication as bolus. 2. Continue increased protein intake. 3. Further management will be dependent on the clinical course. Job ID: [id number]
[2018-10-01] MEDS: Famotidine 20 MG TAB PO SCH (20:01)
[2018-10-02] MEDS: Tamsulosin HCl 0.4 MG CAP PO SCH (09:21)
[2018-10-02] MEDS: Enoxaparin Sodium 40 MG/0.4 ML SYRINGE SC SCH (09:21)
[2018-10-02] MEDS: Aspirin 81 mg Enteric Coated Tablet PO SCH (09:22)
[2018-10-02] MEDS: Dexamethasone 4 MG TAB PO SCH (09:22)
[2018-10-02] MEDS: Finasteride 5 MG TAB PO SCH (09:22)
[2018-10-02] MEDS: Senokot S 8.6-50 MG TAB PO SCH ×2 (09:22→20:17)
[2018-10-02] MEDS: Multivit, Therapeutic 1 TAB PO SCH (09:22)
[2018-10-02] MEDS: Escitalopram Oxalate 20 mg Tablet PO SCH (09:22)
[2018-10-02 09:56] LABS: Anion Gap 14 mmol/L (10-20); BUN (Urea Nitrogen) 21 mg/dL (8.4-25.7); Calc. Creatinine Clearance 52 mL/min (70-130); Calcium 8.2 mg/dL (7.8-10.44); Carbon Dioxide 20 mmol/L (23-31); Chloride 99 mmol/L (98-107); Estimated GFR-MDRD 63; Glucose 94 mg/dL (83-110); Potassium 3.4 mmol/L (3.5-5.1); Sodium 130 mmol/L (136-145)
--- NOTE | 2018-10-02 11:08 | PDOC.PN ---
- Subjective Encounter Start Date: 10/02/18 Encounter Start Time: 10:45 Subjective: awake, no sob -: responds well to verbal stimuli -: caregiver at bedside - Objective Resuscitation Status - Order Detail: 09/30/18 19:22 Resuscitation Status Routine Resuscitation Status: FULL: Full Resuscitation MAR Reviewed: Yes Vital Signs & Weight: Vital Signs (12 hours) Temp Pulse Resp BP BP Pulse Ox 10/02/18 08:00 97.5 F L 70 20 107/53 L 95 10/02/18 04:00 97.8 F 80 20 110/53 L 98 10/02/18 00:00 97.6 F 70 18 95/53 L 98 Weight Weight 149 lb 9.6 oz I&O: 10/01/18 10/02/18 10/03/18 06:59 06:59 06:59 Intake Total 730 500 180 Balance 730 500 180 Result Diagrams: 10/01/18 04:39 10/02/18 09:20 Phys Exam - Physical Examination HEENT: PERRLA, moist MMs Neck: no JVD, supple Respiratory: no wheezing, no rales Cardiovascular: RRR, no significant murmur Gastrointestinal: soft, non-tender, positive bowel sounds Musculoskeletal: no edema, pulses present Neurological: non-focal, moves all 4 limbs Dx/Plan (1) Hyponatremia Code(s): E87.1 - HYPO-OSMOLALITY AND HYPONATREMIA Status: Acute (2) Dehydration, moderate Code(s): E86.0 - DEHYDRATION Status: Resolved (3) Generalized weakness Code(s): R53.1 - WEAKNESS Status: Chronic (4) HTN (hypertension) Code(s): I10 - ESSENTIAL (PRIMARY) HYPERTENSION Status: Chronic Qualifiers: Hypertension type: essential hypertension Qualified Code(s): I10 - Essential (primary) hypertension (5) Metastatic malignant neoplasm to prostate Code(s): C79.82 - SECONDARY MALIGNANT NEOPLASM OF GENITAL ORGANS Status: Chronic (6) GARRICK (acute kidney injury) Code(s): N17.9 - ACUTE KIDNEY FAILURE, UNSPECIFIED Status: Resolved (7) Acute encephalopathy Code(s): G93.40 - ENCEPHALOPATHY, UNSPECIFIED Status: Acute Comment: likely at baseline - Plan sodium is at 130 this am, dc levaquin in am -: recieved conivaptan infusions x 2 -: check bmp in am, dc plan in am -: poor prognosis with adv prostate ca -: continue toprol, asp, decadron, flomax and proscar * . Review of Systems - Medications/Allergies Allergies/Adverse Reactions: Allergies Allergy/AdvReac Type Severity Reaction Status Date / Time No Known Allergies Allergy Verified 12/20/17 03:31 Medications: Current Medications Acetaminophen (Tylenol) 650 mg PO Q4H PRN PRN Reason: Headache/Fever/Mild Pain (1-3) Hydrocodone Bitart/Acetaminophen ([place] 5/325) 1 tab PO Q4H PRN PRN Reason: Moderate Pain (4-6) Aspirin (Ecotrin) 81 mg PO DAILY [facility] Last Admin: 10/02/18 09:22 Dose: 81 mg Dexamethasone (Decadron) 4 mg PO DAILY [facility] Last Admin: 10/02/18 09:22 Dose: 4 mg Enoxaparin Sodium (Lovenox) 40 mg SC 0900 [facility] Last Admin: 10/02/18 09:21 Dose: 40 mg Escitalopram Oxalate (Lexapro) 20 mg PO DAILY [facility] Last Admin: 10/02/18 09:22 Dose: 20 mg Famotidine (Pepcid) 20 mg PO Q24HR [facility] Last Admin: 10/01/18 20:01 Dose: 20 mg Finasteride (Proscar) 5 mg PO DAILY [facility] Last Admin: 10/02/18 09:22 Dose: 5 mg Guaifenesin/Dextromethorphan (Robitussin Dm) 15 ml PO Q4H PRN PRN Reason: Cough Levofloxacin 500 mg/ Device 100 mls @ 100 mls/hr IVPB 2000 [facility] Last Admin: 10/01/18 19:54 Dose: 100 mls Metoprolol Succinate (Toprol Xl) 50 mg PO DAILY [facility] Last Admin: 10/02/18 09:22 Dose: 50 mg Morphine Sulfate (Morphine) 2 mg SLOW IVP Q4H PRN PRN Reason: Chest Pain/BP Elevations Multivitamins (Theragran) 1 tab PO DAILY [facility] Last Admin: 10/02/18 09:22 Dose: 1 tab Senna/Docusate Sodium (Senokot S) 2 tab PO BID [facility] Last Admin: 10/02/18 09:22 Dose: 2 tab Sodium Chloride (Flush - Normal Saline) 10 ml IVF Q12HR [facility] Last Admin: 10/02/18 09:23 Dose: 10 ml Sodium Chloride (Flush - Normal Saline) 10 ml IVF PRN PRN PRN Reason: Saline Flush Tamsulosin HCl (Flomax) 0.8 mg PO DAILY [facility] Last Admin: 10/02/18 09:21 Dose: 0.8 mg
--- NOTE | 2018-10-02 14:11 | EKG ---
Test Reason : Blood Pressure : / mmHG Vent. Rate : 078 BPM Atrial Rate : 073 BPM P-R Int : 138 ms QRS Dur : 174 ms QT Int : 486 ms P-R-T Axes : -12 -57 110 degrees QTc Int : 554 ms AV dual-paced rhythm with frequent ventricular-paced complexes and with occasional Premature ventricu lar complexes Abnormal ECG Confirmed by DUSTIN LYON DO ([id number]), deputy editor in chief DERICK GHOTRA ([id number]) on 10/02/2018 2:11:46 PM Referred By: Confirmed By:DUSTIN LYON DO
--- NOTE | 2018-10-02 18:02 | PRG ---
DATE OF SERVICE: 10/02/2018 SUBJECTIVE: The patient is seen and examined. He seems to be doing much better. Noted with the following vital signs. OBJECTIVE: VITAL SIGNS: Afebrile, temperature 98.1, pulse 78, respiratory rate of 18, O2 saturation of 99%, blood pressure 102/65. HEENT: Unremarkable. CARDIOVASCULAR SYSTEM: First and second heart sounds were heard. RESPIRATORY SYSTEM: Clear to auscultation. DIGESTIVE SYSTEM: Revealed a benign abdomen. EXTREMITIES: No peripheral edema. SKIN: No new gross rash. LYMPHATICS: No peripheral lymphadenopathy. LABORATORY INVESTIGATIONS: Significant for sodium that has gone up to 130 with potassium of 3.4. IMPRESSION: 1. 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 He responded very well to Vaprisol. 2. Mild hypokalemia. PLAN: 1. Replete potassium. 2. The patient to receive oral tolvaptan. 3. If patient maintains sustained clinical improvement, the patient likely to be due for discharge within the next 24 hours. Job ID: [id number]
[2018-10-02] MEDS: Famotidine 20 MG TAB PO SCH (20:17)
[2018-10-03 06:44] LABS: Anion Gap 15 mmol/L (10-20); BUN (Urea Nitrogen) 21 mg/dL (8.4-25.7); Calc. Creatinine Clearance 61 mL/min (70-130); Calcium 8.2 mg/dL (7.8-10.44); Carbon Dioxide 17 mmol/L (23-31); Chloride 98 mmol/L (98-107); Estimated GFR-MDRD 76; Glucose 93 mg/dL (83-110); Potassium 3.6 mmol/L (3.5-5.1); Sodium 126 mmol/L (136-145)
[2018-10-03] MEDS: Finasteride 5 MG TAB PO SCH (08:37)
[2018-10-03] MEDS: Senokot S 8.6-50 MG TAB PO SCH ×2 (08:37→20:45)
[2018-10-03] MEDS: Multivit, Therapeutic 1 TAB PO SCH (08:37)
[2018-10-03] MEDS: Tamsulosin HCl 0.4 MG CAP PO SCH (08:37)
[2018-10-03] MEDS: Escitalopram Oxalate 20 mg Tablet PO SCH (08:37)
[2018-10-03] MEDS: Dexamethasone 4 MG TAB PO SCH (08:37)
[2018-10-03] MEDS: Aspirin 81 mg Enteric Coated Tablet PO SCH (08:37)
[2018-10-03] MEDS: Enoxaparin Sodium 40 MG/0.4 ML SYRINGE SC SCH (08:37)
[2018-10-03] MEDS: Tolvaptan 15 MG TAB PO SCH (08:44)
[2018-10-03 17:04] LABS: Sodium 128 mmol/L (136-145)
--- NOTE | 2018-10-03 20:42 | PRG ---
DATE OF SERVICE: 10/03/2018 SUBJECTIVE: The patient is seen and examined with no new complaints, sleepy but arousable. Noted with the following vital signs. OBJECTIVE: VITAL SIGNS: Afebrile, temperature 98.1, pulse 60, respiratory rate of 18, O2 saturation 99%, and blood pressure 108/61. HEENT: Unremarkable. CARDIOVASCULAR: First and second heart sounds were heard. RESPIRATORY: Clear to auscultation. DIGESTIVE SYSTEM: Revealed a benign abdomen with positive bowel sounds. EXTREMITIES: No peripheral edema. SKIN EXAMINATION: No new gross rash. LYMPHATICS: No peripheral lymphadenopathy. LABORATORY DATA: Laboratory investigation showed a sodium that drifted down to 126. 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 PLAN: oral medications on daily basis and if his sodium is improving from the Renal standpoint, the patient will be good for discharge with a plan to follow up with me within the next 2 weeks. Job ID: [id number]
[2018-10-03] MEDS: Famotidine 20 MG TAB PO SCH (20:45)
--- NOTE | 2018-10-04 05:28 | PDOC.PN ---
- Subjective Encounter Start Date: 10/03/18 Encounter Start Time: 11:15 Subjective: pt up in bed, awake but confused - Objective Resuscitation Status - Order Detail: 09/30/18 19:22 Resuscitation Status Routine Resuscitation Status: FULL: Full Resuscitation Vital Signs & Weight: Vital Signs (12 hours) Temp Pulse Resp BP Pulse Ox 10/04/18 00:00 98.2 F 79 18 110/72 99 10/03/18 20:00 97.4 F L 79 18 109/65 99 Weight Weight 149 lb 9.6 oz I&O: 10/02/18 10/03/18 10/04/18 06:59 06:59 06:59 Intake Total 500 460 360 Balance 500 460 360 Result Diagrams: 10/01/18 04:39 10/03/18 16:38 Phys Exam - Physical Examination Neck: no nodes, no JVD, supple, full ROM Respiratory: no wheezing, no rales, no rhonchi, wheezing present, clear to auscultation bilateral Cardiovascular: RRR, no significant murmur, no rub, gallop, irregular Gastrointestinal: soft, non-tender, no distention, positive bowel sounds Musculoskeletal: edema present Neurological: non-focal, normal sensation, moves all 4 limbs Dx/Plan (1) Hyponatremia Code(s): E87.1 - HYPO-OSMOLALITY AND HYPONATREMIA Status: Acute (2) Dehydration, moderate Code(s): E86.0 - DEHYDRATION Status: Resolved (3) Generalized weakness Code(s): R53.1 - WEAKNESS Status: Chronic (4) HTN (hypertension) Code(s): I10 - ESSENTIAL (PRIMARY) HYPERTENSION Status: Chronic Qualifiers: Hypertension type: essential hypertension Qualified Code(s): I10 - Essential (primary) hypertension - Plan pt's Na is low today, will recheck later in the afternoon. -: will talk with nephro if ok to discharge home -: pt's has help all the time at home. * . Review of Systems - Review of Systems Other: unable to obtain - Medications/Allergies Allergies/Adverse Reactions: Allergies Allergy/AdvReac Type Severity Reaction Status Date / Time No Known Allergies Allergy Verified 12/20/17 03:31 Medications: Current Medications Acetaminophen (Tylenol) 650 mg PO Q4H PRN PRN Reason: Headache/Fever/Mild Pain (1-3) Hydrocodone Bitart/Acetaminophen ([place] 5/325) 1 tab PO Q4H PRN PRN Reason: Moderate Pain (4-6) Aspirin (Ecotrin) 81 mg PO DAILY [facility] Last Admin: 10/03/18 08:37 Dose: 81 mg Dexamethasone (Decadron) 4 mg PO DAILY [facility] Last Admin: 10/03/18 08:37 Dose: 4 mg Enoxaparin Sodium (Lovenox) 40 mg SC 0900 [facility] Last Admin: 10/03/18 08:37 Dose: 40 mg Escitalopram Oxalate (Lexapro) 20 mg PO DAILY [facility] Last Admin: 10/03/18 08:37 Dose: 20 mg Famotidine (Pepcid) 20 mg PO Q24HR [facility] Last Admin: 10/03/18 20:45 Dose: 20 mg Finasteride (Proscar) 5 mg PO DAILY [facility] Last Admin: 10/03/18 08:37 Dose: 5 mg Guaifenesin/Dextromethorphan (Robitussin Dm) 15 ml PO Q4H PRN PRN Reason: Cough Last Admin: 10/03/18 17:44 Dose: 15 ml Levofloxacin 500 mg/ Device 100 mls @ 100 mls/hr IVPB 2000 [facility] Last Admin: 10/03/18 20:44 Dose: 100 mls Metoprolol Succinate (Toprol Xl) 50 mg PO DAILY [facility] Last Admin: 10/03/18 08:37 Dose: 50 mg Morphine Sulfate (Morphine) 2 mg SLOW IVP Q4H PRN PRN Reason: Chest Pain/BP Elevations Multivitamins (Theragran) 1 tab PO DAILY [facility] Last Admin: 10/03/18 08:37 Dose: 1 tab Senna/Docusate Sodium (Senokot S) 2 tab PO BID [facility] Last Admin: 10/03/18 20:45 Dose: 2 tab Sodium Chloride (Flush - Normal Saline) 10 ml IVF Q12HR [facility] Last Admin: 10/03/18 20:46 Dose: 10 ml Sodium Chloride (Flush - Normal Saline) 10 ml IVF PRN PRN PRN Reason: Saline Flush Tamsulosin HCl (Flomax) 0.8 mg PO DAILY [facility] Last Admin: 10/03/18 08:37 Dose: 0.8 mg Tolvaptan (Samsca) 15 mg PO DAILY [facility] Last Admin: 10/03/18 08:44 Dose: 15 mg
[2018-10-04] MEDS: Escitalopram Oxalate 20 mg Tablet PO SCH (08:43)
[2018-10-04] MEDS: Tolvaptan 15 MG TAB PO SCH (08:43)
[2018-10-04] MEDS: Enoxaparin Sodium 40 MG/0.4 ML SYRINGE SC SCH (08:43)
[2018-10-04] MEDS: Multivit, Therapeutic 1 TAB PO SCH (08:43)
[2018-10-04] MEDS: Tamsulosin HCl 0.4 MG CAP PO SCH (08:43)
[2018-10-04] MEDS: Finasteride 5 MG TAB PO SCH (08:43)
[2018-10-04] MEDS: Aspirin 81 mg Enteric Coated Tablet PO SCH (08:44)
[2018-10-04] MEDS: Dexamethasone 4 MG TAB PO SCH (08:44)
[2018-10-04] MEDS: Senokot S 8.6-50 MG TAB PO SCH (08:45)
[2018-10-04 09:08] LABS: Anion Gap 14 mmol/L (10-20); BUN (Urea Nitrogen) 22 mg/dL (8.4-25.7); Calc. Creatinine Clearance 50 mL/min (70-130); Calcium 8.3 mg/dL (7.8-10.44); Carbon Dioxide 19 mmol/L (23-31); Chloride 102 mmol/L (98-107); Estimated GFR-MDRD 61; Glucose 91 mg/dL (83-110); Potassium 3.4 mmol/L (3.5-5.1); Sodium 132 mmol/L (136-145)
[2018-10-04] MEDS ORDERED: Potassium Chloride 20 MEQ TAB PO SCH (11:00)
[2018-10-04 12:02] VITALS: TEMP 98.5
[2018-10-04 15:10] VITALS: BP 107/66
--- NOTE | 2018-10-05 06:46 | DIS ---
DATE OF ADMISSION: 09/30/2018 DATE OF DISCHARGE: 10/04/2018 DISCHARGE DIAGNOSES: As of the following; 1. 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 2. Dehydration, moderate. 3. Generalized weakness. 4. Hypertension. 5. Prostate cancer with metastatic lesions. HOSPITAL COURSE: The patient is a 77-year-old male who initially presented to the hospital on 09/30 after having a syncopal episode. The patient is supposed to be on home hospice, and under the care of palliative care, and also has a 24-hour home sitter done by the patient's family. 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 He also had a cervical spine CT scan and a brain CT. The cervical spine CT did not indicate degenerative changes in the cervical spine without any osseous abnormality. The brain CT indicated no acute intracranial abnormality or involutional changes and chronic ischemic white matter changes. The patient, at this time, was admitted and was found to have sodium level of 123. At this time, the patient was seen by Nephrology. Also, initially, the patient's hyponatremia was most likely thought to be secondary to underlying malignancy and also SIADH. The patient, at this time, was closely monitored and also Nephrology was consulted. The patient also on several medications that could worsen the hyponatremia including hydrochlorothiazide and also SSRI. The patient was given tolvaptan by Nephrology and his sodium continued to improve dramatically. On discharge, his sodium was 132. The patient while in the hospital wanted to be a full code. This was extensively explained to the patient's that if he did have resuscitation given his significant metastatic lesions on his ribs, this would be very detrimental and very painful for the patient and the outcome would be poor. The patient's did understand, however, for now wanted the patient to be a full code. However, the patient is a do not resuscitate. The patient will be discharged home. He will follow up with Dr. Hartley in 2 weeks and also I have prescribed him tolvaptan for about 3 to 4 days. HOME MEDICATIONS: His home medications will be; 1. Metoprolol, I decreased the dose from 50 to 25 mg daily. 2. Potassium 20 mEq daily. 3. Tolvaptan 15 mg p.o. daily for 4 days. 4. Tamsulosin 0.8 daily. 5. Citalopram 10 mg daily. 6. Finasteride 5 mg daily. 7. Aspirin 81 mg daily. 8. Dexamethasone 4 mg p.o. daily. PHYSICAL EXAMINATION: VITAL SIGNS: Temperature 98.5, pulse of 59, respirations 16, 99% on room air. GENERAL: He is awake, alert, and oriented x2. CV: S1 and S2 present. No murmurs, rubs, or gallops. ABDOMEN: Soft and nontender. Bowel sounds are present x2. EXTREMITIES: Mild edema. Pedal pulses are present x2. Again, the patient will be discharged home with home hospice and hospice will continue and palliative will continue to see the patient. We will follow up with Dr. Hartley in about 2 weeks. I have provided the patient's with the phone number and he will also follow up with his primary care doctor. Job ID: [id number]
== END 2018-10-04 13:32 | disposition home or self-care (01) | DRG 644 ==
LOC: ERS 11:27 → ERHOLD 19:38 → IMCU/EMU 21:06 → T4-B 10-01 16:30
PROVIDERS: ADMIT Internal Medicine; ATTEND Internal Medicine
DX: E22.2 Syndrome of inappropriate secretion of antidiuretic hormone (principal); N17.9 Acute kidney failure, unspecified; C78.5 Secondary malignant neoplasm of large intestine and rectum; C79.51 Secondary malignant neoplasm of bone; F32.3 Major depressive disorder, single episode, severe with psychotic features; E86.0 Dehydration; C61 Malignant neoplasm of prostate; Z95.0 Presence of cardiac pacemaker; I10 Essential (primary) hypertension; Z51.5 Encounter for palliative care; Z79.82 Long term (current) use of aspirin; Z79.899 Other long term (current) drug therapy; Z79.83 Long term (current) use of bisphosphonates; Z79.84 Long term (current) use of oral hypoglycemic drugs; Z79.52 Long term (current) use of systemic steroids
CPT/HCPCS: 36415; 51701; 70450; 71275; 72125; 80048; 80053; 81003; 81015; 82436; 82533; 83930; 83935; 84133; 84300; 84443; 84484; 84550; 85025; 87040; 87086; 93005; 94760; 96360; G8978-GP-CL; G8979-GP-CJ; G8987-GO-CM; G8988-GO-CK; J1650; J1720; J1956; J8540

== ENCOUNTER 2018-10-23 16:50 | Emergency (ER) | payer MEDICARE, OTHER ==
[2018-10-23 17:43] LABS: #Eosinphils 0.1 thou/uL (0.0-0.7); #Lymphocytes 0.7 thou/uL (1.20-3.40); #Monocytes 0.2 thou/uL (0.11-0.59); #Neutrophils 6.5 thou/uL (1.40-6.50); %Basophils 0.2 % (0.0-1.0); %Eosinophils 0.9 % (0.0-10.0); %Lymphocytes 9.6 % (21.0-51.0); %Monocytes 2.6 % (0.0-10.0); %Neutrophils 86.8 % (42.0-75.0); Hemoglobin 12.7 g/dL (14.0-18.0); Mean Corpuscular HGB CONC 33.9 g/dL (32.0-36.0); Mean Corpuscular Hemoglobin 32.8 pg (27.0-31.0); Mean Corpuscular Volume 96.9 fL (78.0-98.0); Mean Platelet Volume 7.3 fL (7.4-10.4); Platelet Count 140 thou/uL (130-400); RBC Distribution Width 15.1 % (11.5-14.5); Red Blood Cell (RBC) Count 3.87 mill/uL (4.70-6.10); White Blood Cell (WBC) Count 7.5 thou/uL (4.8-10.8)
[2018-10-23 18:08] LABS: ALT (SGPT) 27 U/L (8-55); AST (SGOT) 23 U/L (5-34); Albumin 3.3 g/dL (3.4-4.8); Alkaline Phosphatase 255 U/L (40-150); Anion Gap 12 mmol/L (10-20); BUN (Urea Nitrogen) 23 mg/dL (8.4-25.7); Bilirubin, Total 0.7 mg/dL (0.2-1.2); Calc. Creatinine Clearance 0 mL/min (70-130); Calcium 8.2 mg/dL (7.8-10.44); Carbon Dioxide 22 mmol/L (23-31); Chloride 98 mmol/L (98-107); Estimated GFR-MDRD 86; Globulin 2.2 g/dL (2.4-3.5); Glucose 200 mg/dL (83-110); Potassium 4.4 mmol/L (3.5-5.1); Protein, Total 5.5 g/dL (5.8-8.1); Sodium 128 mmol/L (136-145)
[2018-10-23 19:22] LABS: Bilirubin Negative (Negative); Blood, Urine Negative (Negative); Clarity CLEAR (Clear); Glucose, Urine (Dipstick) Negative (Negative); Leukocyte Negative (Negative); Nitrite Negative (Negative); Protein, Urine (Dipstick) Negative (Neg-Trace); Specific Gravity, Urine 1.019 (1.002-1.036)
--- NOTE | 2018-10-23 20:22 | CT ---
CT BRAIN: 10/23/2018 PROVIDED CLINICAL HISTORY: Altered mental status. FINDINGS: The ventricular system appears normal in size and morphology. There is no evidence for intracranial hemorrhage or mass effect. Chronic microvascular ischemic changes are redemonstrated. The extracran ial soft tissues and osseous structures demonstrate an unremarkable CT appearance. IMPRESSION: No evidence for intracranial hemorrhage or mass effect. POS: BI
== END 2018-10-23 20:44 | disposition home or self-care (01) ==
LOC: ERS 16:50
DX: E87.1 Hypo-osmolality and hyponatremia (principal); C61 Malignant neoplasm of prostate; I10 Essential (primary) hypertension; G30.9 Alzheimer's disease, unspecified; F02.80 Dementia in other diseases classified elsewhere, unspecified severity, without behavioral disturbance, psychotic disturbance, mood disturbance, and anxiety; Z85.038 Personal history of other malignant neoplasm of large intestine; Z85.048 Personal history of other malignant neoplasm of rectum, rectosigmoid junction, and anus; Z85.51 Personal history of malignant neoplasm of bladder; Z85.830 Personal history of malignant neoplasm of bone; Z79.82 Long term (current) use of aspirin; Z79.899 Other long term (current) drug therapy
CPT/HCPCS: 36415; 70450; 80053; 81003; 83880; 84484; 85025; 93005; 96360